=== PATIENT | female | born 1965 | race Caucasian/White ===

== ENCOUNTER → 2021-03-17 14:26 | Outpatient (CLI) | payer OTHER, MEDICAID, SELFPAY ==
--- NOTE | 2021-03-17 | DI.MRI.S_ITS ---
PROCEDURE: MR KNEE RT WO CON INDICATIONS: Unilateral primary osteoarthritis, right knee TECHNIQUE: Noncontrast sagittal PD fast spin echo and T2 fast spin echo with fat saturation, sagittal 3-D FLASH with fat saturation; coronal T1 spin echo and PD fast spin echo with fat saturation, and axial PD fast spin echo with fat saturation through the knee. COMPARISON: [facility] Outside Film, CR, XR KNEE 4+ VIEWS BILATERAL, 01/19/2021, 9:20. FINDINGS: Image quality: Degraded by motion artifact.. Menisci: Medial extrusion of the medial meniscus. Linear horizontally oriented high signal intensity traverses the medial meniscal body and posterior horn, demonstrating inferior articular surface extension. Linear horizontally oriented high signal intensity traverses the anterior horn lateral meniscus, demonstrating superior articular surface extension. Lateral extrusion of the lateral meniscus. Cruciate ligaments: The anterior and posterior cruciate ligaments appear intact. Medial structures: The medial collateral ligament appears intact. Visualized portions of the pes anserinus tendons appear normal. No abnormal bursal fluid. Lateral structures: The lateral collateral ligament demonstrates mild T2 signal elevation at the femoral origin. The long and short heads of the biceps femoris tendon appear intact. The popliteus tendon appears normal. Iliotibial band appears normal. Anterior structures: The quadriceps and patellar tendons appear intact. Patellar alignment is normal. No femoral trochlear dysplasia or ventral trochlear prominence. No edema in the infrapatellar fat pad. Bones and cartilage: No bone marrow contusions or fractures. Mild tricompartmental periarticular osteophyte formation. Mild degenerative marrow edema within the anterior and posterior weight-bearing aspects of the medial femoral condyle and medial tibial plateau. 5 mm diameter high-grade articular cartilage defect overlies the patellar apex inferiorly. Severe articular cartilage loss diffusely overlies the weight-bearing aspects of the medial femoral condyle and medial tibial plateau. Mild articular cartilage loss diffusely overlies the weight-bearing aspects of the lateral femoral condyle and lateral tibial plateau. Joint space: There is a small knee joint effusion and a small Ruvalcaba's cyst. Normal appearing synovial plicae are incidentally noted. IMPRESSION: 1. Tricompartmental osteoarthritis with associated articular cartilage loss. 2. Medial and lateral meniscal tearing. 3. Knee joint effusion and Ruvalcaba's cyst. 4. Low-grade partial-thickness lateral collateral ligament tear. Dictated by: Anne Issa M.D. on 03/17/2021 at 16:10 Approved by: Anne Issa M.D. on 03/17/2021 at 16:12
== END ==
PROVIDERS: Referring Provider Orthopaedic Surgery; Visit Provider Orthopaedic Surgery
DX: M17.11 Unilateral primary osteoarthritis, right knee (principal); S83.241A Other tear of medial meniscus, current injury, right knee, initial encounter; S83.281A Other tear of lateral meniscus, current injury, right knee, initial encounter; M25.461 Effusion, right knee; M71.21 Synovial cyst of popliteal space [Baker], right knee; S83.421A Sprain of lateral collateral ligament of right knee, initial encounter
CPT/HCPCS: 73721

== ENCOUNTER → 2021-03-22 15:15 | Outpatient (CLI) | payer OTHER, MEDICAID, SELFPAY ==
[2021-03-22 15:26] LABS: Bacteria Urine None Seen; RBC Urine None Seen (0-5/HPF)
[2021-03-22 15:45] LABS: Add Manual Diff / Slide Review NO; Basophils Absolute Auto 0 /uL (0-100); Basophils Percent Auto 0.5 % (0-2); Eosinophils Absolute Auto 100 /uL (0-450); Eosinophils Percent Auto 2.2 % (2-4); Hematocrit 37.7 % (36-46); Hemoglobin 12.6 g/dL (12.0-16.0); Lymphocytes Absolute Auto 2100 /uL (1100-4500); Lymphocytes Percent Auto 33.7 % (25-40); Mean Corpuscular HGB Conc 33.3 % (30-36); Mean Corpuscular Hemoglobin 29.2 PG (26-34); Mean Corpuscular Volume 87.7 fL (80-100); Monocytes Absolute Auto 800 /uL (0-900); Neutrophils Absolute Auto 3200 /uL (1500-7000); Neutrophils Percent Auto 50.6 % (50-75); Platelet Count 259 X10^3/uL (150-400); Red Cell Distribution Width 13.9 % (11.6-14.8); White Blood Cell Count 6.3 X10^3/uL (4.5-11.0)
[2021-03-22 16:57] LABS: BUN Creatinine Ratio 22.9 (6-22); Blood Urea Nitrogen 19 mg/dL (7-17); Calcium 9.1 mg/dL (8.4-10.2); Carbon Dioxide 27 mmol/L (22-32); Chloride 101 mmol/L (98-107); Estimated Glomerular Filt Rate > 60.0 mL/min (>60); Glucose 94 mg/dL (70-100); HEMOLYSIS < 15 (0-50); Potassium 3.5 mmol/L (3.4-5.1); Sodium 136 mmol/L (137-145)
[2021-03-22 17:13] LABS: Appearance Urine UA CLEAR; Bilirubin Urine UA NEGATIVE (NEGATIVE); Color Urine UA YELLOW; Glucose Urine UA NEGATIVE (Negative); Ketones Urine UA NEGATIVE (NEGATIVE); Leukocyte Esterase Urine UA NEGATIVE (NEGATIVE); Nitrite Urine UA NEGATIVE (Negative); Occult Blood Urine UA NEGATIVE (Negative); Protein Urine UA NEGATIVE (Negative); Specific Gravity Urine UA 1.015 (1.000-1.035); Urobilinogen Urine UA 0.2 E.U./dL (0.2)
[2021-03-22 17:24] LABS: WBC Urine 0-1/HPF (0-5/HPF)
[2021-03-22 17:25] LABS: Calcium Oxalate Crystals Urine Few; Culture Indicated Urine Cult Not Indicated; Squamous Epithelial Cell Urine 0-1 /HPF (0-5/HPF)
== END ==
PROVIDERS: Referring Provider Orthopaedic Surgery; Visit Provider Orthopaedic Surgery
DX: Z01.818 Encounter for other preprocedural examination (principal); Z01.812 Encounter for preprocedural laboratory examination; R73.9 Hyperglycemia, unspecified; N39.0 Urinary tract infection, site not specified
CPT/HCPCS: 36415; 80048; 81001; 83036; 85025; 93005; 93010

== ENCOUNTER → 2021-05-06 11:47 | Outpatient (CLI) | payer OTHER, MEDICAID, SELFPAY ==
[2021-05-06 12:49] LABS: COVID19 -Nasal RAPID Negative (Negative)
== END ==
PROVIDERS: Visit Provider Physician Assistant
DX: Z01.812 Encounter for preprocedural laboratory examination (principal); Z20.828 Contact with and (suspected) exposure to other viral communicable diseases
CPT/HCPCS: 87635

== ENCOUNTER 2021-05-09 08:45 | Day surgery (SDC) | payer OTHER, MEDICAID, SELFPAY ==
[2021-05-02 13:59] VITALS: BMI 27.1
[2021-05-09] VITALS (12 sets, daily range): BP systolic 98–142; BP diastolic 68–97; PULSE 80–98; RESP 14–20; TEMP 36.4–37.2; O2SAT 92–98; BMI 27.1
[2021-05-09] MEDS: ACETAMINOPHEN 325 MG TABLET 975 MG PO (09:05)
[2021-05-09] MEDS: MELOXICAM 7.5 MG TABLET 15 MG PO (09:05)
[2021-05-09] MEDS: VANCOMYCIN 1,000 MG/200 ML PIGGYBACK 200 MG IV (09:12)
[2021-05-09] MEDS: LACTATED RINGERS 1,000 ML 42 ML IV (09:33)
--- NOTE | 2021-05-09 10:07 | PM.PREOP ---
Pre-operative Note COVID-19 COVID-19 status: Negative Interval Note History & Physical reviewed/Exam performed by Physician: Yes Changes to H&P: No
--- NOTE | 2021-05-09 10:08 | P.OP_ITS ---
Operative Date/Time/Diagnoses Date of procedure: 05/09/21 Time of procedure: 10:56 Pre-op diagnosis: Right knee OA Post-op diagnosis: same Procedure & Clinicians Procedure: Right total knee arthroplasty Same procedure as scheduled: Yes Indications: The patient has had progressively worsening right knee pain with radiographic changes consistent with arthritis. Non-operative management has failed and the patient has requested total knee replacement. The risks, benefits and alternatives to surgery were discussed with the patient prior to proceeding. Risks discussed included, but were not limited to, failure to relieve pain, stiffness, infection, nerve damage, deep venous thrombosis, pulmonary embolism, stroke, coma, heart attack, permanent paralysis and , as well as the potential need for eventual revision of the prosthetic. Surgeon: Rachel Virgen Glass Blowing Lathe Operator: Israel Naranjo Anesthesia Type: General and Spinal Operative Notes Findings: Severe right knee osteoarthritis, good stability Closure Type: primary Specimen(s): none sent Prosthetic devices, grafts, tissues, transplants, or devices: Virgen [employer] Nephew Lupe BCS 2 size 4 femur, size 3 tibia, +9 poly, 32 x 7.5 mm patella Applied: drain(s) Estimated Blood Loss (mL): 250 Tourniquet time (min): 62 Procedure in detail: The patient was seen in the pre-operative area, where the patient identified the right knee as the operative site and this was marked with my initials. The patient received pre-operative antibiotics, and was taken to the operating room and placed on the operative table in the supine position. After satisfactory anesthesia, a production cloth cutter out was performed. The right leg was encircled with a tourniquet about the proximal thigh, and the leg was prepared from the toes to the tourniquet with ChloroPrep in the usual fashion and draped through sterile drapes. The leg was elevated and exsanguinated with Eschmark bandage and the tourniquet inflated to [250] mmHg pressure. The knee was approached through an approximately 18 cm incision centered over the patella and carried into the knee through a medial parapatellar arthrotomy. A portion of the medial and lateral meniscus was resected. Soft tissue was carefully mobilized around the patella the patella was measured with a caliper. Bone was resected from the patella and the patellar height was reconstituted with up an appropriate sized patellar component. A cover was then placed on the patella. A small amount of additional medial and lateral meniscus was resected. The visionare guide fit well to the distal femur. It looked like an appropriate distal femoral cut and the cut was made without difficulty. The rotation was assessed and the appropriate size femoral guide was placed on the distal femur and finishing cuts were made. There was no evidence of notching. The anterior, posterior and chamfer cuts were then made. The posterior osteophytes and soft tissues were then removed. The posterior capsule was injected with part of a mixture of 60 ml 0.25% Marcaine mixed with 20 ml Exparel for post operative pain control. The remainder of this mixture was injected into the capsule and subcutaneous tissues during cement curing. The tibia was prepared and the visionaire guide fit well to the distal tibia. The rotation was assessed. The patient was placed in extension residual medial and lateral meniscus as well as any residual bone was carefully resected. [No] additional tibia was resected. Hemostasis was achieved especially posteriorly. Additional local was injected into the posterior capsule. The extension gap was assessed and additional releases for gap balancing were performed as necessary. It was checked with the gap it operations specialist. The femoral component was trial was placed and the notch was finished. Trial tibial and femoral components were then placed and the knee placed through a range of motion. Range of motion was [0-130], with good stability throughout the range. The trials were then removed, and the tibia was finished. The bone was prepared with pulsatile lavage, and dried with a sponge. Cement was applied and the final prosthetics placed. Excess cement was removed during and after cement curing. A brief Betadine soak was performed. After confirming there was no extruded cement posteriorly, the final tibial insert was placed. The knee was copiously irrigated and the tourniquet deflated. Hemostasis was obtained with the bovie. A drain was placed and brought out superolaterally. The capsule was closed with interrupted # 1 black braided suture. The subcutaneous layer was closed with barbed sutures, and the skin with a running 3-0 V-Lock suture and Surgical glue. An Aquacel Ag dressing was applied and the patient was taken to recovery having tolerated the procedure well. Complications: none Post-operative Condition: stable Disposition: Acute Care Plan for aftercare: The patient will be maintained on a standard total knee replacement protocol with weight bearing as tolerated. The patient will receive aspirin and sequential compression devices for DVT prophylaxis. The patient will be discharged home when safe for the home environment.
[2021-05-09] MEDS: CEFAZOLIN 1 GM VIAL 2 GM IV ×2 (10:42→19:26)
[2021-05-09] MEDS: TRANEXAMIC ACID 1,000 MG VIAL 1000 MG INJ ×2 (10:43→11:59)
--- NOTE | 2021-05-09 11:01 | SUR.OPER ---
Supine on padded OR bed. Pillow under head, arms secured on padded armboards <90 degree abduction. Safety belt across torso. Non-operative leg secured with tape over blanket over lower leg. Operative leg secured in DeMayo/Tony positioner. Foam padded brace at thigh of operative leg.
[2021-05-09] MEDS: SODIUM CHLORIDE IRRIG SOLUTION 250 ML, POVIDONE-IODINE SPONGE STICKS 1 APPLIC IRR (11:20)
[2021-05-09] MEDS: BUPIVACAINE LIPOSOME 266 MG/20 ML VIAL INJ (11:20)
[2021-05-09] MEDS: BUPIVACAINE 0.25% W/ EPI (PF) 10 ML VIAL 20 ML INJ (11:22)
--- NOTE | 2021-05-09 12:00 | DI.RAD.S_ITS ---
PROCEDURE: XR KNEE RT 1TO2V INDICATIONS: RT TOTAL KNEE TECHNIQUE: 2 view(s) of the knee acquired. COMPARISON: None. FINDINGS: Bones: Patient is status post knee joint arthroplasty. Hardware components are in expected positions. Visualized bony structures are intact. Soft tissues: Overlying postoperative changes are noted. IMPRESSION: Normal alignment after right total knee arthroplasty. Dictated by: Gurvinder Hull M.D. on 05/09/2021 at 13:40 Approved by: Gurvinder Hull M.D. on 05/09/2021 at 13:41
[2021-05-09] MEDS: IBUPROFEN 400 MG TABLET PO ×3 (13:41→21:24)
[2021-05-09] MEDS: LACTATED RINGERS 1,000 ML 100 ML IV (13:41)
[2021-05-09] MEDS: OXYCODONE IR 5 MG TABLET PO (13:41)
--- NOTE | 2021-05-09 14:34 | PC.ADMIT ---
[address] Admission Note: Patient arrived on the floor at 1315, VSS, Dressing is CDI, aquacel w/acewrap and hemovac. Patient has numbness bilaterally in both feet, pedal pulses and cap refill WNL. Patient has some pain 7/10. 5mg of Oxycodone given. Patient educated about the use of call light, it is within reach, bed is low and locked. The patient,Nay Linares,56 y/o, was given written information regarding hospital policies, unit procedures and contact persons. Patient's smoking status: Never smoker. Vital Signs - 8 hr 05/09/21 09:08 05/09/21 12:29 05/09/21 12:34 Temperature 98.2 F 98.6 F Pulse Rate 86 90 82 Respiratory Rate 20 14 16 Blood Pressure 136/86 142/77 H 132/76 Pulse Oximetry 97 96 95 05/09/21 12:39 05/09/21 12:54 05/09/21 14:04 Temperature 98.4 F Pulse Rate 80 80 80 Respiratory Rate 14 16 16 Blood Pressure 118/73 132/73 Pulse Oximetry 95 98 94
--- NOTE | 2021-05-09 15:38 | PT.IIE ---
Current Diagnoses Unilateral primary osteoarthritis, right knee (05/09/21) Surgery Performed Operation Date: 05/09/21 10:45 Actual Procedures p Total Knee Arthroplasty(Right) - Rachel Virgen MD Surgical History (Last Updated 05/02/21 @ 14:12 by Sarah Bonner, RN) History of arthroplasty of left hip (2019) History of arthroscopy of left shoulder Hx of arthroscopy of right knee Hx of lithotripsy Medical History (Last Updated 05/02/21 @ 14:13 by Sarah Bonner RN) Back pain Depression Kidney stones Osteoarthritis Physical Therapy Inpatient Evaluation/Re-Eval M1 PT/OT-IP Prior Functional Status Start: 05/09/21 16:44 Freq: NEEDED Status: Active Protocol: Document 05/09/21 15:38 AB (Rec: 05/09/21 16:54 AB [id number]) Medical Review Prior Functional Status Medical History Reviewed Yes Communication able to make needs known Mobility and Gait pt stated that she is independent with all mobilities and ambulation without AD Social History Household Members none Living Arrangements House Number of Floors (Floors) One Floor Number of Stairs To Enter/Railing? 3 steps L rail ascending to enter Home Environment High Toilet,Walk in Shower, Built-In Shower Seat Home Equipment Hand Held Shower Additional Social History Comment pt plans to stay at her parents house and they can assist pt; home set up info is regarding parent's house M2 PT-IP Current Condition Start: 05/09/21 16:44 Freq: NEEDED Status: Active Protocol: Document 05/09/21 15:38 AB (Rec: 05/09/21 16:54 AB [id number]) Physical Therapy Current Condition Current Condition Evaluation Date 05/09/21 Treatment Diagnosis s/p R TKA; difficulty in walking Onset Date 05/09/21 Weight Bearing Status Weight Bearing Status Weight Bear as Tolerated Allowed Weight Bearing Amount (enter % RLE WBAT or #) (%) M3 PT-IP Subjective Start: 05/09/21 16:44 Freq: NEEDED Status: Active Protocol: Document 05/09/21 15:38 AB (Rec: 05/09/21 16:54 AB [id number]) Subjective Physical Therapy Visit Type Type Initial Evaluation Visit Start Time 15:38 Visit Stop Time 16:05 Total Visit Minutes 27 Number of MODERN LANGUAGES PROFESSOR Visits 0 Physical Therapy Visit Comments Patient Comments agreeable to do PT Therapy Pain Assessment Pain When Pain Assessed At Rest Pain Present Pain Present Pain Reported Location Right Knee Intensity 7 Scale Used Numeric (0 - 10) Pain Behaviors Guarding Pain Management Techniques Apply Cold,Elevation, Modification of Treatment,Re- positioning,Timing of Activity with Medications M4 PT-IP Mobility and Gait Start: 05/09/21 16:44 Freq: NEEDED Status: Active Protocol: Document 05/09/21 15:38 AB (Rec: 05/09/21 16:54 AB [id number]) PT-Bed Mobility Assessment Supine to Sit Supine to Sit Standby Assistance Sit to Supine Sit to Supine Standby Assistance PT-Transfer Assessment Sit to and From Stand Sit to and from Stand Contact Guard Assistance,1 Person Assistance,Use of Upper Extremities Equipment Transfer Assistive Device Bed Rail,Front Wheeled Walker Orthotic/Prosthetic Devices or Brace: No Comments Mobility Comments completed supine to sit SBA. pt was able to sit on EOB SBA. completed sit to stand CGA and ambulated in room using FWW CGA ~ 30 ft. pt went back to bed. positioned in bed. call light and table placed within reach. reviewed post-op folder with pt. Gait Assessment Gait Gait Assistance Required: Contact Guard Assist Distance (Feet) 30 Able to Maintain Weight Bearing Status No During Gait Assistive Devices Assistive Device Gait Belt,Front Wheeled Walker Orthotic/Prosthetic Devices or Brace: No Gait Deviations General Gait Pattern Antalgic,Decreased Stride Length,Decreased Feet Clearance Factors Limiting Gait Function Factors Limiting Gait Function Decreased Activity Tolerance, Decreased Strength,Pain,Poor Balance PT-Balance Assessment Sitting Balance and Reactions Static Sitting Balance Ability Good Dynamic Sitting Balance Ability Good Standing Balance and Reactions Static Standing Balance Ability Fair Dynamic Standing Balance Ability Fair Device Used FWW M5 PT-IP Objective Assessments Start: 05/09/21 16:44 Freq: NEEDED Status: Active Protocol: Document 05/09/21 15:38 AB (Rec: 05/09/21 16:54 AB [id number]) Orientation Orientation/Cognition Level of Alertness Alert Orientation Name,Age,Birthday,Month,Date, Year,Day of Week,Place, Situation Language Function Ability No Deficits Noted Safety Awareness Understands Safety Issues Gross Range of Motion Lower Extremity ROM Assessment Within Functional Limits Strength Lower Extremity Strength Assessment Right Impaired Hip 4+/5 Knee 3+/5 Coordination Assessment Gross Coordination Gross Coordination WNL Sensation Assessment Sensation Gross Sensation WNL Muscle Tone Muscle Tone WNL Yes M6 PT-IP Treatment Start: 05/09/21 16:44 Freq: NEEDED Status: Active Protocol: Document 05/09/21 15:38 AB (Rec: 05/09/21 16:54 AB [id number]) Physical Therapy Treatment Education Education Provided Precautions,Weight Bearing Status,Post-Op Packet,Safety M7 PT-IP Assessment and Plan Start: 05/09/21 16:44 Freq: NEEDED Status: Active Protocol: Document 05/09/21 15:38 AB (Rec: 05/09/21 16:54 AB [id number]) PT Summary Assessment and Plan Potential Rehabilitation Potential Good Status of Condition at Evaluation Stable Summary Impairments Pain,ROM,Strength,Balance,Bed Mobility,Transfers,Gait, Activity Tolerance Assessment Summary pt s/p R TKA POD 0. pt requiring CGA with mobility using FWW and plans to go to her parent's house upon d/c and stated that her parents will be able to assist her. pt will likely progress in mobility during hospital stay. will conduct caregiver training if appropriate and will also complete stair climbing training prior to d/c . Goals Bed Mobility Goal Independent Transfer Goal Independent,Front Wheeled Walker Gait Goal Independent,Front Wheel Walker Gait Distance 150 Other Goals up/down 3 steps L rail ascending SBA Days to Meet Goals 5 Frequency of Treatment Frequency Of Treatment Twice a Day Treatment Plan Physical Therapy Treatment Plan Bed Mobility Training,Transfer Training,Gait Training, Therapeutic Exercise,Balance Retraining,Post Op Education, Discharge Planning,Hot or Cold Pack,Neuromuscular Re-ed, Coordination Retraining,Manual Therapy Precautions Other Precautions RLE WBAT Recommendations To Nursing Amount of Assist Needed 1 Person Assist Discharge Recommendations PT Discharge Recommendations Home with Assistance, Outpatient PT Transportation Needs at Discharge Private Vehicle
[2021-05-09] MEDS: ACETAMINOPHEN 325 MG TABLET 650 MG PO ×2 (15:39→21:24)
[2021-05-09] MEDS: OXYCODONE IR 5 MG TABLET 10 MG PO ×3 (16:51→23:32)
[2021-05-09] MEDS: DOCUSATE 100 MG CAPSULE PO (21:24)
[2021-05-09] MEDS: ASPIRIN EC 81 MG TABLET PO (21:24)
[2021-05-09] MEDS: TRAZODONE 100 MG TABLET 200 MG PO (21:26)
[2021-05-10] VITALS: BP 111/65; PULSE 71; RESP 18; TEMP 36.7; O2SAT 95
[2021-05-10] MEDS: IBUPROFEN 400 MG TABLET PO ×4 (00:45→13:32)
[2021-05-10] MEDS: LACTATED RINGERS 1,000 ML 100 ML IV (01:07)
[2021-05-10] MEDS: CEFAZOLIN 1 GM VIAL 2 GM IV (02:45)
[2021-05-10] MEDS: OXYCODONE IR 5 MG TABLET 10 MG PO ×5 (02:52→14:37)
[2021-05-10 03:06] VITALS: BP 136/66; PULSE 83; RESP 14; TEMP 36.9; O2SAT 95
[2021-05-10] MEDS: SODIUM CHLORIDE 0.9% FLUSH 10 ML IV ×2 (04:57→08:23)
--- NOTE | 2021-05-10 05:25 | PC.NURSE ---
Ambulated w/ FWW and GEAR MACHINIST completely through the acute care and ICU floors without any problem.
[2021-05-10 05:29] LABS: Hematocrit 31.9 % (36-46); Hemoglobin 10.6 g/dL (12.0-16.0)
--- NOTE | 2021-05-10 05:34 | PC.NURSE ---
Saline locked IV, pt. ambulating in the hallway, SBA & her own walker. Pain level up to 8 after she ambulated, will medicate her with 10 mg. of Oxycodone & monitor.
[2021-05-10 07:00] VITALS: BP 129/76; PULSE 65; RESP 17; TEMP 36.3; O2SAT 96
[2021-05-10] MEDS: buPROPion XL 150 MG TAB 300 MG PO (08:18)
[2021-05-10] MEDS: ASPIRIN EC 81 MG TABLET PO (08:18)
[2021-05-10] MEDS: DOCUSATE 100 MG CAPSULE PO (08:18)
[2021-05-10] MEDS: DULOXETINE 30 MG CAPSULE 60 MG PO (08:18)
[2021-05-10] MEDS: ACETAMINOPHEN 325 MG TABLET 650 MG PO ×2 (08:19→13:32)
[2021-05-10 08:36] VITALS: RESP 16; O2SAT 95
--- NOTE | 2021-05-10 09:35 | PT.IPTN ---
Current Diagnoses Unilateral primary osteoarthritis, right knee (05/09/21) Surgery Performed Operation Date: 05/09/21 10:45 Actual Procedures p Total Knee Arthroplasty(Right) - Rachel Virgen MD Physical Therapy Treatment Note M2 PT-IP Current Condition Start: 05/09/21 16:44 Freq: NEEDED Status: Active Protocol: Document 05/09/21 15:38 AB (Rec: 05/09/21 16:54 AB [id number]) Physical Therapy Current Condition Current Condition Evaluation Date 05/09/21 Treatment Diagnosis s/p R TKA; difficulty in walking Onset Date 05/09/21 Weight Bearing Status Weight Bearing Status Weight Bear as Tolerated Allowed Weight Bearing Amount (enter % RLE WBAT or #) (%) M3 PT-IP Subjective Start: 05/09/21 16:44 Freq: NEEDED Status: Active Protocol: Document 05/10/21 09:18 SP (Rec: 05/10/21 12:12 SP [id number]) Subjective Physical Therapy Visit Type Type Treatment Note Visit Start Time 09:18 Visit Stop Time 09:35 Total Visit Minutes 17 Number of MANAGER OF PHARMACY Visits 1 Physical Therapy Visit Comments Patient Comments Pt agreeable to working with therapy. Patient Goals To return to her mother's house, she will provide assist if needed while recovering. Therapy Pain Assessment Pain When Pain Assessed During Mobility Pain Present Pain Present Pain Reported Location Right Knee Intensity 4 Scale Used Numeric (0 - 10) Description With Movement Pain Behaviors Facial Grimacing Pain Management Techniques Apply Cold,Elevation,Re- positioning,Timing of Activity with Medications M4 PT-IP Mobility and Gait Start: 05/09/21 16:44 Freq: NEEDED Status: Active Protocol: Document 05/10/21 09:18 SP (Rec: 05/10/21 12:12 SP [id number]) PT-Bed Mobility Assessment Supine to Sit Supine to Sit Independent Scooting Scooting to Edge of Bed Independent PT-Transfer Assessment Sit to and From Stand Sit to and from Stand Independent,Use of Upper Extremities Equipment Transfer Assistive Device Gait Belt,Front Wheeled Walker Orthotic/Prosthetic Devices or Brace: No Transfers Transfer Destination Chair,Toilet Transfer Technique pt ambulated using FWW Transfer Ability Level of Assist Independent,Use of Upper Extremities Comments Mobility Comments Pt elevated supine in bed when arrived. Reviewed post op ex. Completed supine>sit and scoot to EOB Mod I with no support of UEs for RLE. Sit> stand Mod I x2 reps with and without UE support RLE positioned little out in front and fWW positioned in front, stable. Pt ambulated further into hallway using FWW Mod I to stairs, completed stairs then around nursing station and back to room approx 700ft total. She navigated bathroom using FWW Mod I, completed transfer using grab bar for support slow descent <> stand Mod I and self pericare then walk to sink with proper positioning of fWW in front for safety support as needed, good balance and even WB BLE to wash hands then walk to chair with good slow descent and reclined chair self after discussed lever on R for how to recline. Pt had call light and all needs in reach before left. Gait Assessment Gait Gait Assistance Required: Independent Distance (Feet) 700 Able to Maintain Weight Bearing Status No During Gait Assistive Devices Assistive Device Gait Belt,Front Wheeled Walker Orthotic/Prosthetic Devices or Brace: No Gait Deviations General Gait Pattern Antalgic Factors Limiting Gait Function Factors Limiting Gait Function Limited Range of Motion,Pain Comments Gait Comments Pt ambulated using FWW improved knee flexion and heel toe phases receiprocal patterning w/ very minimal pressure of BUE on FWW for support during WB LLE and RLE swing through phase. Stair Climbing Assessment Evaluation Level of Assist On Stairs Standby Assistance Devices Stair Climbing Assistive Devices Left Railing Technique/Endurance Stair Climbing Direction Ascend and Descend Stair Climbing Technique Step to Step Number of Steps Climbed 3 Stair Climbing Set # Repetitions (reps) 1 Comments Stair Climbing Comments Ascend/ descend 3 stairs step to patterning using BUE on L HR, cued for proper sequencing and good follow through SBA. PT-Balance Assessment Sitting Balance and Reactions Static Sitting Balance Ability Normal Dynamic Sitting Balance Ability Normal Standing Balance and Reactions Static Standing Balance Ability Good Dynamic Standing Balance Ability Good Device Used FWW M5 PT-IP Objective Assessments Start: 05/09/21 16:44 Freq: NEEDED Status: Active Protocol: Document 05/09/21 15:38 AB (Rec: 05/09/21 16:54 AB [id number]) Orientation Orientation/Cognition Level of Alertness Alert Orientation Name,Age,Birthday,Month,Date, Year,Day of Week,Place, Situation Language Function Ability No Deficits Noted Safety Awareness Understands Safety Issues Gross Range of Motion Lower Extremity ROM Assessment Within Functional Limits Strength Lower Extremity Strength Assessment Right Impaired Hip 4+/5 Knee 3+/5 Coordination Assessment Gross Coordination Gross Coordination WNL Sensation Assessment Sensation Gross Sensation WNL Muscle Tone Muscle Tone WNL Yes M6 PT-IP Treatment Start: 05/09/21 16:44 Freq: NEEDED Status: Active Protocol: Document 05/10/21 09:18 SP (Rec: 05/10/21 12:12 SP [id number]) Physical Therapy Treatment Exercises Exercises Ankle Pumps,Heel Slides, Straight Leg Raises,Seated Knee Flexion/Extension Knee ROM Measurement 90 deg Education Education Provided Precautions,Weight Bearing Status,Post-Op Packet,Safety M7 PT-IP Assessment and Plan Start: 05/09/21 16:44 Freq: NEEDED Status: Active Protocol: Document 05/10/21 09:18 SP (Rec: 05/10/21 12:12 SP [id number]) PT Summary Assessment and Plan Potential Rehabilitation Potential Excellent Status of Condition at Evaluation Stable Summary Impairments Pain,ROM,Strength,Balance,Bed Mobility,Transfers,Gait, Activity Tolerance Progress Towards Goals Progressing Toward Goals,Goals Met Assessment Summary Pt progressing very well this tx. Completes all mobility Mod I using FWW, stair mgt SBA 1 HR, no caregiver training required. Pt is set up with outpt therapy and able to return home with her mother to assist if needed when medically cleared. Goals Bed Mobility Goal Independent Transfer Goal Independent,Front Wheeled Walker Gait Goal Independent,Front Wheel Walker Gait Distance 150 Other Goals up/down 3 steps L rail ascending SBA Days to Meet Goals 5 Frequency of Treatment Frequency Of Treatment Twice a Day Treatment Plan Physical Therapy Treatment Plan Bed Mobility Training,Transfer Training,Gait Training, Therapeutic Exercise,Balance Retraining,Post Op Education, Discharge Planning,Hot or Cold Pack,Neuromuscular Re-ed, Coordination Retraining,Manual Therapy Other Recommendations and Next Treatment LE ex, balance, gait with LRAD Focus . Precautions Other Precautions RLE WBAT Recommendations To Nursing Amount of Assist Needed Independent Discharge Recommendations PT Discharge Recommendations Home with Assistance, Outpatient PT Transportation Needs at Discharge Private Vehicle
[2021-05-10 11:00] VITALS: BP 121/75; PULSE 70; RESP 18; TEMP 36.9; O2SAT 96
--- NOTE | 2021-05-10 11:10 | CM.DANOTE ---
Addendum entered by ANA Turcios 05/10/21 15:04: ADD: Per Ortho PA, pt safe for d/c home via mother POV today and outpt follow up and no identified barriers to discharge. Per RN, pt's mother bedside and agreeable and able to transport pt home today, no concerns. BF Original Note: Patient is a 56 year old female who was admitted on 05/09/21 for RTKA. Pt has [facility] and [facility] for insurance and her PCP is Dr. Ene Burgos. EMR was reviewed. Per Ortho , pt has hx of depression and past hip replacement and tolerated her procedure well and may be stable to d/c home later today pending PT eval and recommendations. Per PT, pt is independent with ADL's and does not use DME to ambulate at baseline and recommending safe d/c home with family assist and outpt PT. SW observed pt walking hallways with walker independently with PT this morning. SW met bedside with pt and explained role and pt confirms that she lives at home alone in [place] but has local supportive parents who can provide transport home at d/c and she will stay with them for at least a few days for additional assist. Pt denies any hx of HH or SNF and has outpt PT appt set up already for after discharge. Pt does not anticipate any needs and states her mom plans to be bedside around noon and can transport today if pt stable for d/c. Plan: SW to follow for likely pt d/c home via family POV and assist today and outpt PT set up. No further SW needs at this time, please refer if indicated. ANA Turcios Discharge Planning/Care Management Advanced directive, confirm from FAMILY Start: 05/09/21 13:31 Freq: Q24H Status: Complete Protocol: Document 05/09/21 13:31 KLP (Rec: 05/09/21 13:35 KLP [id number]) Advance Directive, confirm on record Time 13:35 Person contacted Nay Copy received No Document 05/10/21 08:47 CEW (Rec: 05/10/21 08:48 CEW [id number]) Advance Directive, confirm on record Time 13:35 Person contacted Nay Copy received No Time 08:48 Person contacted Nay, she will bring form in when completed. Is a FC at this time per pt CM Discharge Assessment Start: 05/10/21 10:41 Freq: Status: Active Protocol: Document 05/10/21 10:41 BF (Rec: 05/10/21 11:10 BF [id number]) Discharge Planning Assessment Assigned Cook Jelly ANA Hess DPOA/Assigned Designee Name informally Mother Winsome Contact Information [phone] Advance Directives? No Advance Directives on File No History Provided By Patient,Medical Record Has Patient been admitted in last 30 No days? Prior Living Arrangements House Household Members none Type of transporation used prior to Drives own vehicle admit Independent with ADL's Yes Is patient alert and oriented? Yes Caregiver for Another No Community Services used prior to Physical Therapy admission: Patient/Family Preference OP PT Therapy Barriers to Discharge No Discharge Plan Home Community Services Physical Therapy Transportation Arrangement Mother to transport today in the afternoon Referrals Initiated None needed Whiteboard Updated in Patient Room with Yes name and ext. # of Cook Jelly Review Status In Process Please Provide Date Initial DC 05/10/21 Assessment Was Performed Next Review Type Continued Stay Review Pre-Anesthesia Assessment Start: 05/02/21 13:59 Freq: Status: Complete Protocol: Document 05/02/21 13:59 CAB (Rec: 05/02/21 14:25 CAB [id number]) Pre-Anesthesia Assessment Patient Information Reviewed Via Phone Assessment Assessment Completed With Patient Diagnostic Results BMP/CMP,CBC,EKG Comment Labs/EKG @ 03/22/21 COVID screen at 05/08/21 Primary Care Provider Jody Seen Specialist in Last 12 Months Yes Specialist Seen Orthopedist Primary Language Finnish Polymer Specialist Required No Height 162.56 cm Weight 71.668 kg Body Mass Index (BMI) 27.1 Hearing Ability Normal Visual Impairment No Limitations Visual Assist Magnifying Glass Dentition Type Teeth, Natural Present,Teeth, Missing Barriers to Learning None Hx Anesthesia Reactions No Hx Family Anesthesia Reaction No Hx Malignant Hyperthermia No Hx Blood Transfusions No Anesthesia Review Requested No alcohol intake former Alcohol Intake Frequency Other: Quit 3-4 years ago Smoking Status Never smoker Substance Use Type does not use Pain Present Pain Reported Musculoskeletal Symptoms Abnormal Gait,Back Pain, Difficulty Walking,Joint Pain History of Falling (Recent or History of Yes ) Patient is completely paralyzed or No completely immobile Mental Status Oriented to own ability Is patient on oxygen? No Does patient have PENALOZA/SOB No Hx Sleep Apnea No Currently Taking a Beta Aaron No Can You Climb a Flight of Stairs Without Yes SOB Hx Chest Pain No Hx SOB No Hx Syncope or Dizziness No Anti-Coagulant Therapy No Has a Nondestructive Tester No Cardiac Testing No Hx Pacemaker/ICD No Pacemaker Rep Required? No Cardiac Clearance Received Not Applicable Diet Type At Home Low Carb dysphagia No Urinary Catheter Present No Hx Urinary Self Catheterization No Diabetes No Patient No Lactating No Hx Drug Resistant Organism No Presence of External or Internal Medical Yes: Left hip Devices Have you had any close contact with No someone diagnosed with COVID-19? Marital Status Single Lives With other Prior Living Arrangements House Number of Floors (Floors) One Floor Support System Parent(s) Does the Patient Have Assistance After Yes: Pt will stay w/parents Surgery after surgery Patient Discharge Plan Description Other Comment Pt will stay w/parents after surgery Additional comment Pt not advised on length of stay per surgeon Feels Safe in Current Environment Yes Been Physically Hurt or Threatened By a No Person in Current Environment Do you have thoughts of harming yourself None or others? Are you currently considering suicide? No Do you have a plan to hurt yourself or No Plan others? Do You Have Any Spiritual Beliefs That No May Affect Your HC Choices? Do You Have Any Cultural Practices That No May Affect Your HC Choices? Who Can We Speak to About Patient's Care Family, friends Identifying Code for Release of Patient Declines to issue Information Health Care Proxy/Next of Kin Winsome Valdez) Health Care Proxy Emergency Contact Name Winsome Valdez) Emergency Contact Advance Directives? No Power of [place] Machine Operator No PAC Instructions Do not shave/clip surgical site,Durable medical equipment ,Medications to take/avoid, Nasal antibiotic,No ETOH/ petroleum product on skin DOS, NPO,Sensory aids,Sturdy shoes/ comfortable clothes,Do not bring valuables and remove jewelry
--- NOTE | 2021-05-10 11:51 | PC.NURSE ---
Pt accidently pulled drain apart. Hemovac removed intact. IV removed intact. Pt is having some problems with pain control, medication is not lasting long enough and she is having muscle spasm, message sent to md/pac.
--- NOTE | 2021-05-10 13:35 | PT-IP ANOTE ---
Pt noted still here in afternoon waiting on DC orders. Pt reported having pain and nursing was providing pain meds at time of arrival. Pt felt didn't have any other PT needs, demonstrated Mod I during all mobility and SBA stair mgt that her mom can provide thus meeting all PT goals during am tx so not need PM tx. SOCIAL SERVICES COUNSELOR did not provide tx this pm and pt is ok to return home with medically cleared.
--- NOTE | 2021-05-10 14:58 | PC.NURSE ---
Discharge: Pt feels ready to d/c to home. Had some issues with pain, now taking oxycodone 10mg instead of 5 and this has been helping her with pain better. She feels she can d/c home with current pain med regime. Diet tolerated w/out problems. Hemovac and IV already out. Vds w/out diff. Reviewed d/c packet. Given rx for pain medication, other scripts were esent. Has worked with PT and given there d/c instructions. Pt's mom will be staying with her for help. Pt d/c home via auto w/her mother.
== END 2021-05-10 14:55 | disposition home or self-care (01) ==
LOC: OR 08:51 → AC 08:52
PROVIDERS: Family Provider Family Medicine; PCP Family Medicine; Referring Provider Orthopaedic Surgery; Visit Provider Orthopaedic Surgery
PROC: 0SRC0JZ Replacement of Right Knee Joint with Synthetic Substitute, Open Approach (ICD-10-PCS; CPT 27447; principal; 2021-05-09 10:45)
DX: M17.11 Unilateral primary osteoarthritis, right knee (principal); F32.9 Major depressive disorder, single episode, unspecified
CPT/HCPCS: 27447; 36415; 73560; 85014; 85018; 94760; 94762; 97116; 97161; C1776; C9290; J0690; J1100; J2250; J2274; J2405; J2704; J3010

== ENCOUNTER 2021-05-23 10:30 | Outpatient (RCR) | payer OTHER, MEDICAID, SELFPAY ==
[2021-05-09 13:23] VITALS: BMI 27.1
--- NOTE | 2021-05-10 15:19 | PM.DS.1 ---
History of Present Illness History of Present Illness Date Patient Seen: 05/10/21 Time Patient Seen: 14:01 Chief complaint: total knee Narrative: Patient's pain is [id number]. Denies fever or chills. No nausea or vomiting. Patient will have her mother home and available to assist her. Discharge Providers Provider Discharge Date: 05/10/21 Primary care physician: Ene Burgos MD Discharge provider: Israel Naranjo PA-C Summary Hospital Course Discharge Diagnosis: Right knee osteoarthritis Hospital Course: Procedure: Right total knee arthroplasty Same procedure as scheduled: Yes Indications: The patient has had progressively worsening right knee pain with radiographic changes consistent with arthritis. Non-operative management has failed and the patient has requested total knee replacement. The risks, benefits and alternatives to surgery were discussed with the patient prior to proceeding. Risks discussed included, but were not limited to, failure to relieve pain, stiffness, infection, nerve damage, deep venous thrombosis, pulmonary embolism, stroke, coma, heart attack, permanent paralysis and , as well as the potential need for eventual revision of the prosthetic. Surgeon: Rachel Virgen Registered Dietitian: Israel Naranjo Anesthesia Type: General and Spinal Operative Notes Findings: Severe right knee osteoarthritis, good stability Closure Type: primary Specimen(s): none sent Prosthetic devices, grafts, tissues, transplants, or devices: Virgen and Nephew Journey BCS 2 size 4 femur, size 3 tibia, +9 poly, 32 x 7.5 mm patella Applied: drain(s) Estimated Blood Loss (mL): 250 Tourniquet time (min): 62 Patient admitted to the hospital for right total knee arthroplasty. Patient consented to the same. Patient taken operating room on May 09, 2021. Patient underwent right total knee arthroplasty. Patient back in her room recovering well and is in stable condition. Discharge home today in stable condition. Exam Narrative Exam Narrative: Pleasant 56-year-old female resting comfortably in bed in no apparent distress. Right knee dressing is Clean, dry, intact.. Motor functions intact bilateral lower extremities. Sensation grossly intact to light touch bilateral lower extremities. [facility] Medical History (Updated 05/02/21 @ 14:13 by Sarah Bonner RN) Back pain Depression Kidney stones Osteoarthritis Surgical History (Updated 05/02/21 @ 14:12 by Sarah Bonner RN) History of arthroplasty of left hip (2019) History of arthroscopy of left shoulder Hx of arthroscopy of right knee Hx of lithotripsy Social History household members: none Smoking Status: Never smoker alcohol intake: former Discharge Assessment & Plan Assessment and Plan Assessment: Patient progressing as expected status post right total knee arthroplasty. Plan of Treatment: Discharge home today in stable condition. Discharge Plan Discharge Med Rec/Prescriptions Prescriptions: No Action trazodone 100 mg Tablet 200 mg PO BEDTIME RF: 0 bupropion HCl 300 mg Tablet Extended Release 24 Hr 300 mg PO QAM RF: 0 duloxetine 60 mg Capsule,Delayed Release(Dr/Ec) 60 mg PO DAILY RF: 0 acetaminophen 325 mg Tablet 650 mg PO TID Qty: 60 RF: 0 aspirin 81 mg Tablet,Delayed Release (Dr/Ec) 81 mg PO BID Qty: 60 RF: 0 ibuprofen 400 mg Tablet 400 mg PO Q4HR Qty: 60 RF: 0 docusate sodium [DOK] 100 mg Capsule 100 mg PO BID Qty: 20 RF: 0 oxycodone 5 mg Tablet 5 mg PO Q3HR PRN (Reason: Pain, Moderate (4-6)) Qty: 60 RF: 0 Discharge Data Primary Care Provider: Ene Burgos Attending Provider: Rachel Virgen
--- NOTE | 2021-05-16 12:54 | PT.OIE ---
Current Diagnoses Unilateral primary osteoarthritis, right knee (05/16/21) Past Medical History (Last Updated 05/02/21 @ 14:13 by Sarah Bonner RN) Back pain Depression Kidney stones Osteoarthritis Past Surgical History (Last Updated 05/02/21 @ 14:12 by Sarah Bonner RN) History of arthroplasty of left hip (2019) History of arthroscopy of left shoulder Hx of arthroscopy of right knee Hx of lithotripsy Visit Care Team Role Provider Type Other Providers Specialty: Address: Phone: Fax: Email: Ene Burgos MD Family Provider Non-Staff Primary Care Provider Specialty: Family Practice Address: [address] [place] [address], [id number] Email: Rachel Virgen MD Attending Provider Physician Referring Provider Specialty: Orthopedic Surgery Address: [address] [place] [address], [id number] Email: [email or web address] Physical Therapy Initial Evaluation PT-OP-A Visit Information Start: 05/07/21 08:21 Freq: Status: Active Protocol: Document 05/16/21 12:00 OF (Rec: 05/16/21 12:53 OF [id number]) Out-Patient Physical Therapy Visit Information Visit Information Visit Type Initial Evaluation Visit Start Time 11:15 Visit Stop Time 12:00 Total Visit Minutes 45 Visit Number 1 Evaluation Information Evaluation Date 05/16/21 PT-OP-B Current Condition Start: 05/07/21 08:21 Freq: Status: Active Protocol: Document 05/16/21 12:00 OF (Rec: 05/16/21 12:53 OF [id number]) Current Condition History of Current Condition Onset Date 05/09/21 Current Complaints pain, loss of ROM in R knee History of Current Condition Pt has had chronic knee pain, recently underwent R TKA Treatment Goals Patient/Caregiver Goals get back to moving on my own Prior Functional Status Baseline Function- ADL's Independent Baseline Function- Mobility Independent Baseline Function- Gait Independent Current Functional Impairments (Reported) Functional Limitations- ADL's Pt has difficulty with transfers, AMB, pain with ADL PT-OP-C Subjective Start: 05/07/21 08:21 Freq: Status: Active Protocol: Document 05/16/21 12:00 OF (Rec: 05/16/21 12:53 OF [id number]) OP-PT Subjective Patient Comments Patient Comments Pt states she is bruised, sore , fatigued after surgery Patient Reported Progress Improving Patient Questionnaires Lower Extremity Functional Scale LEFS Score 25 LEFS Impairment 60 to 79% Impaired (Score 17- 31) OP-PT Pain Assessment Location Right Knee Pain Location Details post knee Intensity 6 Description Aching Frequency Frequent Pain Aggravating Factors Changing Position,ADL's, Activity,Exercise,Standing, Walking Pain Alleviating Factors Medication,Inactivity Home Pain Medication Use Pain Medications Used Yes Patient Goal ibuprofen, tylenol PT-OP-G Mobility & Gait Start: 05/07/21 08:21 Freq: Status: Active Protocol: Document 05/16/21 12:00 OF (Rec: 05/16/21 12:53 OF [id number]) OP Mobility Evaluation Functional Movements Squats poor weightshifting due to R LE pain OP Gait Assessment Gait Gait Assistance Required: Standby Assistance Distance (Feet) 200 Able to Maintain Weight Bearing Status Yes During Gait Assistive Devices Assistive Device Front Wheeled Walker Gait Deviations General Gait Pattern Antalgic,Decreased Stride Length,Decreased Feet Clearance,Lateral Trunk Lean Factors Limiting Gait Function Factors Limiting Gait Function Decreased Strength,Limited Range of Motion,Pain,Poor Balance Comments Gait Comments poor pushoff on R, impaired stance on R, antalgic PT-OP-K Range of Motion Start: 05/07/21 08:21 Freq: Status: Active Protocol: Document 05/16/21 12:00 OF (Rec: 05/16/21 12:53 OF [id number]) Knee Goniometric Range of Motion Knee R Knee ROM WFL No Patient Position Sitting Flexion Active (degrees) 89 Extension Active (degrees) 175 Comments pain at end range Knee ROM Limitations Knee ROM Limitations Pain,Swelling PT-OP-Q Treatments Start: 05/07/21 08:21 Freq: Status: Active Protocol: Document 05/16/21 12:00 OF (Rec: 05/16/21 12:53 OF [id number]) Cardio Equipment Recumbent Bicycle Duration (Minutes) 10 Resistance 0 Seat Position 4 Other 1/2 revolutions to improve R knee ROM Therapeutic Exercises Sitting Exercises LAQ Side right Reps/Minutes 3x10 Comments for HEP heel slide Side right Reps/Minutes 3x10 Comments cues for hold at end of AROM Standing Exercises heel lifts Side bilateral Reps/Minutes 3x10 Comments cues for knee ext Self-Care/Home Management Treatment Education Patient Education Body Mechanics,Fall Risk,Home Exercise Program,Joint Protection,Pain Management Other Education Pt advised to use Fww outside of home due to difficulty with cane PT-OP-T Assessment and Plan Start: 05/07/21 08:21 Freq: Status: Active Protocol: Document 05/16/21 12:00 OF (Rec: 05/16/21 12:53 OF [id number]) Physical Therapy Assessment Rehab Potential Rehabilitation Potential Excellent Evaluation Complexity Number of Personal Factors/Comorbidities 1-2 Number of Body Systems Impaired 1-2 Clinical Presentation at Evaluation Stable Impairments Impairments Functional Activities, Functional Mobility,Gait,Pain, ROM,Strength Goals 4 Impairment LEFS Short Term Goal (STG) Pt will improve LE function to score <20 on LEFS STG Duration 2 weeks Residential Goal (LTG) Pt will improve LE function to score <10 on LEFS 3 Impairment difficulty walking Short Term Goal (STG) pt will AMB 150ft with cane SBA to improve I with mobility STG Duration 2 weeks Grades 9 Thru 12 Visiting Teacher Goal (LTG) Pt will AMB >1000ft without AD and I to return to I community mobility 2 Impairment loss of ROM Short Term Goal (STG) Pt will demo R knee AROM of 95 -180 to normalize gait pattern STG Duration 2 weeks Grades 9 Thru 12 Visiting Teacher Goal (LTG) Pt will demo R knee AROM of 120 flexion through 180 extension to return to I PLOF LTG Duration 6 weeks 1 Impairment pt has no HEP Short Term Goal (STG) Pt will perform basic HEP with MIN A STG Duration 2 weeks Grades 9 Thru 12 Visiting Teacher Goal (LTG) Pt will perform advanced HEP for LE strengthening and AAROM LTG Duration 6 weeks Progress Towards Goals Progress Towards Goals Slow Progress due to Activity Tolerance Assessment Summary Assessment Nay is a 56 YO female S/P R TKA. She has arthritis in L knee and has previously underwent ANUJA on L. She is motivated to return to I PLOF. She has pain with all mobility and difficulty sleeping at this time. She has poor ROM and will require continued therapy to restore ROM, improve gait pattern, reduce fall risk, and return to I PLOF. Physical Therapy Plan Frequency and Duration Frequency of Treatment 2x/Week Duration of Treatment 6 weeks Plan of Care Start Date 05/16/21 Plan of Care End Date 07/23/21 Therapeutic Interventions Therapeutic Interventions Balance Training,Gait Training ,Home Exercise Program,Joint Mobilizations,Manual Therapy, Neuromuscular Re-education, Patient/Caregiver Education, Self-Care/Home Management, Therapeutic Activities, Therapeutic Exercises Modalities Cold Pack/Ice Massage,Electric Stimulation Next Visit Focus/Plan Next Note Type Treatment Note Next Visit Plan assess standing heel lifts/ stretches. Progress 1/2 revolutions on bike. Initiate standing quad strengthening. AAROM for knee flexion/ext if tolerated
--- NOTE | 2021-05-16 12:54 | PT.OPPOC ---
Physical, Occupational & Speech Therapy At [facility] Current Diagnoses Unilateral primary osteoarthritis, right knee (05/16/21) Visit Care Team Role Provider Type Other Providers Specialty: Address: Phone: Fax: Email: Ene Burgos MD Family Provider Non-Staff Primary Care Provider Specialty: Family Practice Address: [address] [place] [address], [address] Email: Rachel Virgen MD Attending Provider Physician Referring Provider Specialty: Orthopedic Surgery Address: [address] [place] [address], [id number] Email: [email or web address] Plan Of Care PT-OP-T Assessment and Plan Start: 05/07/21 08:21 Freq: Status: Active Protocol: Document 05/16/21 12:00 OF (Rec: 05/16/21 12:53 OF [id number]) Physical Therapy Assessment Rehab Potential Rehabilitation Potential Excellent Evaluation Complexity Number of Personal Factors/Comorbidities 1-2 Number of Body Systems Impaired 1-2 Clinical Presentation at Evaluation Stable Impairments Impairments Functional Activities, Functional Mobility,Gait,Pain, ROM,Strength Goals 4 Impairment LEFS Short Term Goal (STG) Pt will improve LE function to score <20 on LEFS STG Duration 2 weeks Blood Bank Technologist Goal (LTG) Pt will improve LE function to score <10 on LEFS 3 Impairment difficulty walking Short Term Goal (STG) pt will AMB 150ft with cane SBA to improve I with mobility STG Duration 2 weeks Blood Bank Technologist Goal (LTG) Pt will AMB >1000ft without AD and I to return to I community mobility 2 Impairment loss of ROM Short Term Goal (STG) Pt will demo R knee AROM of 95 -180 to normalize gait pattern STG Duration 2 weeks Retirement Goal (LTG) Pt will demo R knee AROM of 120 flexion through 180 extension to return to I PLOF LTG Duration 6 weeks 1 Impairment pt has no HEP Short Term Goal (STG) Pt will perform basic HEP with MIN A STG Duration 2 weeks Blood Bank Technologist Goal (LTG) Pt will perform advanced HEP for LE strengthening and AAROM LTG Duration 6 weeks Progress Towards Goals Progress Towards Goals Slow Progress due to Activity Tolerance Assessment Summary Assessment Nay is a 56 YO female S/P R TKA. She has arthritis in L knee and has previously underwent ANUJA on L. She is motivated to return to I PLOF. She has pain with all mobility and difficulty sleeping at this time. She has poor ROM and will require continued therapy to restore ROM, improve gait pattern, reduce fall risk, and return to I PLOF. Physical Therapy Plan Frequency and Duration Frequency of Treatment 2x/Week Duration of Treatment 6 weeks Plan of Care Start Date 05/16/21 Plan of Care End Date 06/23/21 Therapeutic Interventions Therapeutic Interventions Balance Training,Gait Training ,Home Exercise Program,Joint Mobilizations,Manual Therapy, Neuromuscular Re-education, Patient/Caregiver Education, Self-Care/Home Management, Therapeutic Activities, Therapeutic Exercises Modalities Cold Pack/Ice Massage,Electric Stimulation Next Visit Focus/Plan Next Note Type Treatment Note Next Visit Plan assess standing heel lifts/ stretches. Progress 1/2 revolutions on bike. Initiate standing quad strengthening. AAROM for knee flexion/ext if tolerated Plan of Care Dates Plan of Care Start Date 05/16/21 Plan of Care End Date 06/23/21 Electronically Signed by: Umer Jones, PT 05/16/21 [id number] Please Sign and Return: I have reviewed this Plan of Care and certify that the skilled therapy services above are required to meet the patient?s needs. Physician Signature Date Printed Name and Credentials Clinical Instructor Signature Printed Name and Credentials
--- NOTE | 2021-05-19 10:40 | PT.OTN ---
Current Diagnoses Unilateral primary osteoarthritis, right knee (05/19/21) Physical Therapy Treatment Note PT-OP-A Visit Information Start: 05/07/21 08:21 Freq: Status: Active Protocol: Document 05/19/21 09:47 SP (Rec: 05/19/21 12:19 SP [id number]) Out-Patient Physical Therapy Visit Information Visit Information Visit Type Treatment Note Visit Note Pt reported will keep next appt, then please DC due to insurance and attending practice in [facility] where used to work. Mother attended tx for caregiver assist trng for massage, any assist can give pt/daughter. Visit Start Time 09:47 Visit Stop Time 10:40 Total Visit Minutes 53 Visit Number 2 Number of INVENTORY REPRESENTATIVE Visits 1 Evaluation Information Evaluation Date 05/16/21 PT-OP-B Current Condition Start: 05/07/21 08:21 Freq: Status: Active Protocol: Document 05/16/21 12:00 OF (Rec: 05/16/21 12:53 OF [id number]) Current Condition History of Current Condition Onset Date 05/09/21 Current Complaints pain, loss of ROM in R knee History of Current Condition Pt has had chronic knee pain, recently underwent R TKA Treatment Goals Patient/Caregiver Goals get back to moving on my own Prior Functional Status Baseline Function- ADL's Independent Baseline Function- Mobility Independent Baseline Function- Gait Independent Current Functional Impairments (Reported) Functional Limitations- ADL's Pt has difficulty with transfers, AMB, pain with ADL PT-OP-C Subjective Start: 05/07/21 08:21 Freq: Status: Active Protocol: Document 05/19/21 09:47 SP (Rec: 05/19/21 12:19 SP [id number]) OP-PT Subjective Patient Comments Patient Comments Pt arrives without AD with lateral lean/ antalgic gait. states follows up with physician next sat. Today having pain and cramping in R calf, HS and wants assistance to lessen. Has been walking in house mostly without AD. 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 Noted bruising HS and calf, achilles post heel, edema med/ lat lower thigh. PT-OP-G Mobility & Gait Start: 05/07/21 08:21 Freq: Status: Active Protocol: Document 05/16/21 12:00 OF (Rec: 05/16/21 12:53 OF [id number]) OP Mobility Evaluation Functional Movements Squats poor weightshifting due to R LE pain OP Gait Assessment Gait Gait Assistance Required: Standby Assistance Distance (Feet) 200 Able to Maintain Weight Bearing Status Yes During Gait Assistive Devices Assistive Device Front Wheeled Walker Gait Deviations General Gait Pattern Antalgic,Decreased Stride Length,Decreased Feet Clearance,Lateral Trunk Lean Factors Limiting Gait Function Factors Limiting Gait Function Decreased Strength,Limited Range of Motion,Pain,Poor Balance Comments Gait Comments poor pushoff on R, impaired stance on R, antalgic PT-OP-K Range of Motion Start: 05/07/21 08:21 Freq: Status: Active Protocol: Document 05/19/21 09:47 SP (Rec: 05/19/21 12:19 SP [id number]) Knee Goniometric Range of Motion Knee R Knee ROM WFL No Comments supine heel slide AROM 91* supine over 55cm tball w/ gait belt AAROM 98* self performance PT-OP-Q Treatments Start: 05/07/21 08:21 Freq: Status: Active Protocol: Document 05/19/21 09:47 SP (Rec: 05/19/21 12:19 SP [id number]) Therapeutic Exercises Supine Exercises knee flexion over tball Supine Exercise Name hand outs provided- give at next appt Side right Resistance AAROM Equipment Used 55cm ball, strap assist Reps/Minutes x10 Comments more comforting/relaxed 98* ( discussed can supine HS on wall) post op ex Supine Exercise Name HS, quad set, SLR, ankle pumps . Side right Equipment Used issued strap for self HS assist ROM Reps/Minutes 10 reps each Comments felt better to perform after manual STMs to HS, calf Prone Exercises prone hang Prone Exercise Name discussed not performed for ROM R knee extension. Side right Reps/Minutes 3x 20-30 Standing Exercises heel lifts Side bilateral Reps/Minutes 3x10 Comments cues for knee ext Gait Training Gait Activity gait SPC Description 2 pt gait Device Used SPC Level of Assistance S Surface firm Distance/Duration 50 ft x2 Treatment Focus level pelvis, quad facilitation Comments improved post manual, and HEP review, good quad assist using SPC in LUE- pt stated will get one after tx. Manual Therapy Treatment Soft Tissue Mobilization HS, calf Body Location retrograde massage Taping K taping Body Location R distal adductors, ITB areas of swelling Treatment Focus decrease swelling, improve lymph return Type of Tape Kinesio Tape Skin Inspection intact, normal flesh lymph edema Comments octopus distal to prox 3 leg from anchoring- unsure will secure due to previous had oils on leg- next tx can add biofreeze for improved adhesive. PT-OP-R Modalities Start: 05/07/21 08:21 Freq: Status: Active Protocol: Document 05/19/21 09:47 SP (Rec: 05/19/21 12:19 SP [id number]) Hot Pack/Cold Pack Treatment cryocuff Location R knee Patient Position Hooklying Treatment Duration (minutes) 10 Patient Tolerance Good Comments decreased pain. PT-OP-T Assessment and Plan Start: 05/07/21 08:21 Freq: Status: Active Protocol: Document 05/19/21 09:47 SP (Rec: 05/19/21 12:19 SP [id number]) Physical Therapy Assessment Goals 4 Impairment LEFS Short Term Goal (STG) Pt will improve LE function to score <20 on LEFS STG Duration 2 weeks Manager Of Financial Planning Goal (LTG) Pt will improve LE function to score <10 on LEFS 3 Impairment difficulty walking Short Term Goal (STG) pt will AMB 150ft with cane SBA to improve I with mobility STG Duration 2 weeks Manager Of Financial Planning Goal (LTG) Pt will AMB >1000ft without AD and I to return to I community mobility 2 Impairment loss of ROM Short Term Goal (STG) Pt will demo R knee AROM of 95 -180 to normalize gait pattern 05/19/21: progressing AROM HS 4 -91 deg, AAROM 98* using strap . STG Duration 2 weeks Halfway Goal (LTG) Pt will demo R knee AROM of 120 flexion through 180 extension to return to I PLOF LTG Duration 6 weeks 1 Impairment pt has no HEP Short Term Goal (STG) Pt will perform basic HEP with MIN A STG Duration 2 weeks Manager Of Financial Planning Goal (LTG) Pt will perform advanced HEP for LE strengthening and AAROM LTG Duration 6 weeks Assessment Summary Assessment Pt improved decrease pain, increased ROM and good response to HEP review. Intiated use of SPC during gait with improvement in demonstration decrease antalgic gait. Pt will go get SPC after appt for normalizing quality and potentially decrease compensations and maybe pain as result. Physical Therapy Plan Frequency and Duration Frequency of Treatment 2x/Week Duration of Treatment 6 weeks Plan of Care Start Date 05/16/21 Plan of Care End Date 06/23/21 Therapeutic Interventions Therapeutic Interventions Balance Training,Gait Training ,Home Exercise Program,Joint Mobilizations,Manual Therapy, Neuromuscular Re-education, Patient/Caregiver Education, Self-Care/Home Management, Therapeutic Activities, Therapeutic Exercises Modalities Cold Pack/Ice Massage,Electric Stimulation Next Visit Focus/Plan Next Note Type Treatment Note Next Visit Plan Assess standing heel lifts/ stretches. Progress 1/2 revolutions on bike. Initiate standing quad strengthening. AAROM for knee flexion/ext if tolerated Ktaping help for edema
--- NOTE | 2021-05-23 15:07 | PT.OTN ---
Current Diagnoses Unilateral primary osteoarthritis, right knee (05/23/21) Physical Therapy Treatment Note PT-OP-A Visit Information Start: 05/07/21 08:21 Freq: Status: Active Protocol: Document 05/23/21 10:34 SAK (Rec: 05/23/21 11:19 SAK [id number]) Out-Patient Physical Therapy Visit Information Visit Information Visit Type Discharge Summary Visit Start Time 10:30 Visit Number 3 Number of OIL PRODUCER Visits 0 Evaluation Information Evaluation Date 05/16/21 PT-OP-B Current Condition Start: 05/07/21 08:21 Freq: Status: Active Protocol: Document 05/16/21 12:00 OF (Rec: 05/16/21 12:53 OF [id number]) Current Condition History of Current Condition Onset Date 05/09/21 Current Complaints pain, loss of ROM in R knee History of Current Condition Pt has had chronic knee pain, recently underwent R TKA Treatment Goals Patient/Caregiver Goals get back to moving on my own Prior Functional Status Baseline Function- ADL's Independent Baseline Function- Mobility Independent Baseline Function- Gait Independent Current Functional Impairments (Reported) Functional Limitations- ADL's Pt has difficulty with transfers, AMB, pain with ADL PT-OP-C Subjective Start: 05/07/21 08:21 Freq: Status: Active Protocol: Document 05/23/21 10:34 SAK (Rec: 05/23/21 11:19 SAK [id number]) OP-PT Subjective Patient Comments Patient Comments More sore today, maybe due to not moving much yet today. Feels bandage restricts a little, sees doctor Param tomorrow. Compliant to HEP. Today last day PT at this clinic, will be transferring to clinic where she used to work ([employer] in [place] ). Using cane for gait due to pain. PT-OP-G Mobility & Gait Start: 05/07/21 08:21 Freq: Status: Active Protocol: Document 05/16/21 12:00 OF (Rec: 05/16/21 12:53 OF [id number]) OP Mobility Evaluation Functional Movements Squats poor weightshifting due to R LE pain OP Gait Assessment Gait Gait Assistance Required: Standby Assistance Distance (Feet) 200 Able to Maintain Weight Bearing Status Yes During Gait Assistive Devices Assistive Device Front Wheeled Walker Gait Deviations General Gait Pattern Antalgic,Decreased Stride Length,Decreased Feet Clearance,Lateral Trunk Lean Factors Limiting Gait Function Factors Limiting Gait Function Decreased Strength,Limited Range of Motion,Pain,Poor Balance Comments Gait Comments poor pushoff on R, impaired stance on R, antalgic PT-OP-K Range of Motion Start: 05/07/21 08:21 Freq: Status: Active Protocol: Document 05/19/21 09:47 SP (Rec: 05/19/21 12:19 SP [id number]) Knee Goniometric Range of Motion Knee R Knee ROM WFL No Comments supine heel slide AROM 91* supine over 55cm tball w/ gait belt AAROM 98* self performance PT-OP-Q Treatments Start: 05/07/21 08:21 Freq: Status: Active Protocol: Document 05/23/21 10:34 SAK (Rec: 05/23/21 11:19 SAK [id number]) Cardio Equipment Recumbent Bicycle Duration (Minutes) 10 Resistance 0 Seat Position 6 to 4 Other full revolutions Gym Equipment Shuttle Recovery Bilateral Squats Resistance 37 Shuttle Recovery Platform Stable Reps/Time 10x Therapeutic Exercises Supine Exercises SAQ Reps/Minutes 10x knee flexion over tball Supine Exercise Name hand outs provided- give at next appt Side right Resistance AAROM Equipment Used 55cm ball, strap assist Reps/Minutes x10 Comments more comforting/relaxed 98* ( discussed can supine HS on wall) Prone Exercises prone hang Side right Reps/Minutes 3x 20-30 PT-OP-R Modalities Start: 05/07/21 08:21 Freq: Status: Active Protocol: Document 05/23/21 10:34 SAK (Rec: 05/23/21 11:19 SAK [id number]) Hot Pack/Cold Pack Treatment cryocuff Location R knee Patient Position Hooklying Treatment Duration (minutes) 10 Patient Tolerance Good Comments decreased pain. PT-OP-T Assessment and Plan Start: 05/07/21 08:21 Freq: Status: Active Protocol: Document 05/23/21 10:34 SAK (Rec: 05/23/21 11:19 SAK [id number]) Physical Therapy Assessment Goals 4 Impairment LEFS Short Term Goal (STG) Pt will improve LE function to score <20 on LEFS STG Duration 2 weeks Skilled Nursing Goal (LTG) Pt will improve LE function to score <10 on LEFS 3 Impairment difficulty walking Short Term Goal (STG) pt will AMB 150ft with cane SBA to improve I with mobility STG Duration 2 weeks Skilled Nursing Goal (LTG) Pt will AMB >1000ft without AD and I to return to I community mobility 2 Impairment loss of ROM Short Term Goal (STG) Pt will demo R knee AROM of 95 -180 to normalize gait pattern 05/19/21: progressing AROM HS 4 -91 deg, AAROM 98* using strap . STG Duration 2 weeks Skilled Nursing Goal (LTG) Pt will demo R knee AROM of 120 flexion through 180 extension to return to I PLOF LTG Duration 6 weeks 1 Impairment pt has no HEP Short Term Goal (STG) Pt will perform basic HEP with MIN A STG Duration 2 weeks Licensed Physical Therapist Goal (LTG) Pt will perform advanced HEP for LE strengthening and AAROM LTG Duration 6 weeks Progress Towards Goals Progress Towards Goals Progressing Toward Goals Assessment Summary Assessment Good progress with ROM, improved gait with use of SPC. Patient appears compliant to HEP, use of ice, though stil moderately swollen, encouraged thigh-high compression stocking. Physical Therapy Plan Discharge Physical Therapy Discharge Reasons Patient Request Discharge Comments transferring to different clinic.
== END 2021-07-04 14:21 | disposition home or self-care (01) ==
LOC: PHYS 10:30
PROVIDERS: Family Provider Family Medicine; PCP Family Medicine; Referring Provider Orthopaedic Surgery; Visit Provider Orthopaedic Surgery
DX: M17.11 Unilateral primary osteoarthritis, right knee (principal)
CPT/HCPCS: 97010; 97110; 97116; 97140; 97161

== ENCOUNTER → 2021-12-22 06:41 | Outpatient (CLI) | payer OTHER, MEDICAID, SELFPAY ==
[2021-05-09 13:23] VITALS: BMI 27.1
--- NOTE | 2021-12-22 | DI.MRI.S_ITS ---
PROCEDURE: MR KNEE LT WO CON INDICATIONS: Unilateral primary osteoarthritis, left knee TECHNIQUE: Noncontrast sagittal PD fast spin echo and T2 fast spin echo with fat saturation, sagittal 3-D FLASH with fat saturation; coronal T1 spin echo and PD fast spin echo with fat saturation, and axial PD fast spin echo with fat saturation through the knee. COMPARISON: [facility], MR, MR KNEE RT WO CON, 03/17/2021, 14:31. FINDINGS: Image quality: Excellent. Menisci: Surfacing signal in the posterior horn, lateral meniscus, compatible with meniscal tear. Non surfacing signal in the medial meniscus, compatible with intrasubstance degeneration. Cruciate ligaments: The anterior and posterior cruciate ligaments appear intact. Medial structures: The medial collateral ligament appears intact. Visualized portions of the pes anserinus tendons appear normal. No abnormal bursal fluid. Lateral structures: The lateral collateral ligament, long and short heads of the biceps femoris tendon appear intact. The popliteus tendon appears normal. Iliotibial band appears normal. Anterior structures: The quadriceps and patellar tendons appear intact. Patellar alignment is normal. No femoral trochlear dysplasia or ventral trochlear prominence. No edema in the infrapatellar fat pad. Bones and cartilage: No bone marrow contusions or fractures. Minimal subchondral edema in the lateral tibial plateau. Tricompartmental osteophytosis. Signal heterogeneity and fissuring of the trochlear, patellar apex and medial femoral condyle hyaline cartilage. Joint space: Small knee joint fluid. No Ruvalcaba's cyst. IMPRESSION: 1. Posterior horn, lateral meniscal tear. 2. Small joint effusion. 3. Degenerative changes of the medial and patellofemoral compartment hyaline cartilage. Dictated by: Anatoly Johnston M.D. on 12/22/2021 at 8:50 Approved by: Anatoly Johnston M.D. on 12/22/2021 at 9:02
== END ==
PROVIDERS: Family Provider Family Medicine; PCP Family Medicine; Referring Provider Orthopaedic Surgery; Visit Provider Orthopaedic Surgery
DX: S83.282A Other tear of lateral meniscus, current injury, left knee, initial encounter (principal); M17.12 Unilateral primary osteoarthritis, left knee; M25.462 Effusion, left knee
CPT/HCPCS: 73721

== ENCOUNTER → 2022-02-07 16:09 | Outpatient (CLI) | payer OTHER, MEDICAID, SELFPAY ==
[2021-05-09 13:23] VITALS: BMI 27.1
[2022-02-07 16:51] LABS: Add Manual Diff / Slide Review NO; Basophils Absolute Auto 0 /uL (0-100); Basophils Percent Auto 0.6 % (0-2); Eosinophils Absolute Auto 300 /uL (0-450); Eosinophils Percent Auto 5.1 % (2-4); Hematocrit 39.7 % (36-46); Hemoglobin 13.3 g/dL (12.0-16.0); Lymphocytes Absolute Auto 1600 /uL (1100-4500); Mean Corpuscular HGB Conc 33.5 % (30-36); Mean Corpuscular Volume 86.6 fL (80-100); Monocytes Absolute Auto 700 /uL (0-900); Monocytes Percent Auto 13.2 % (3-14); Neutrophils Absolute Auto 2800 /uL (1500-7000); Neutrophils Percent Auto 52.1 % (50-75); Platelet Count 241 X10^3/uL (150-400); Red Blood Cell Count 4.58 X10^6/uL (4.0-5.2); White Blood Cell Count 5.4 X10^3/uL (4.5-11.0)
[2022-02-07 17:02] LABS: Appearance Urine UA CLEAR; Bilirubin Urine UA NEGATIVE (NEGATIVE); Color Urine UA YELLOW; Glucose Urine UA NEGATIVE (Negative); Ketones Urine UA TRACE (NEGATIVE); Leukocyte Esterase Urine UA NEGATIVE (NEGATIVE); Nitrite Urine UA NEGATIVE (Negative); Occult Blood Urine UA NEGATIVE (Negative); Protein Urine UA NEGATIVE (Negative); Specific Gravity Urine UA 1.025 (1.000-1.035); Urobilinogen Urine UA 0.2 E.U./dL (0.2)
[2022-02-07 17:07] LABS: Hemoglobin A1C% w Est Avg Glu 5.3 % (4.0-6.0)
[2022-02-07 17:08] LABS: BUN Creatinine Ratio 17.4 (6-22); Blood Urea Nitrogen 15 mg/dL (7-17); Calcium 9.1 mg/dL (8.4-10.2); Carbon Dioxide 29 mmol/L (22-32); Chloride 103 mmol/L (98-107); Estimated Glomerular Filt Rate > 60.0 mL/min (>60); Glucose 103 mg/dL (70-100); Sodium 136 mmol/L (137-145)
[2022-02-07 17:20] LABS: RBC Urine None Seen (0-5/HPF)
[2022-02-07 17:21] LABS: Amorphous Sediment Urine 1+; Bacteria Urine None Seen; Calcium Oxalate Crystals Urine Many; Culture Indicated Urine Cult Not Indicated; Mucus Urine 1+ (Negative); Squamous Epithelial Cell Urine 0-1 /HPF (0-5/HPF); Uric Acid Crystals Urine Moderate; WBC Urine 0-1/HPF (0-5/HPF)
[2022-02-07 17:24] LABS: HEMOLYSIS 122 (0-50); Potassium 4.5 mmol/L (3.4-5.1)
== END ==
PROVIDERS: Family Provider Family Medicine; PCP Family Medicine; Referring Provider Orthopaedic Surgery; Visit Provider Orthopaedic Surgery
DX: Z01.812 Encounter for preprocedural laboratory examination (principal); R73.9 Hyperglycemia, unspecified; N39.0 Urinary tract infection, site not specified
CPT/HCPCS: 36415; 80048; 81001; 83036; 85025

== ENCOUNTER → 2022-02-28 10:23 | Outpatient (CLI) | payer OTHER, MEDICAID, SELFPAY ==
[2021-05-09 13:23] VITALS: BMI 27.1
[2022-02-28 12:52] LABS: COVID19 -Nasal RAPID Negative (Negative)
== END ==
PROVIDERS: PCP Family Medicine; Visit Provider Family Medicine Sleep Medicine
DX: Z20.822 Contact with and (suspected) exposure to COVID-19 (principal)
CPT/HCPCS: 87635; C9803

== ENCOUNTER 2022-03-01 12:10 | Day surgery (SDC) | payer OTHER, MEDICAID, SELFPAY ==
[2021-05-09 13:23] VITALS: BMI 27.1
[2022-02-27 09:01] VITALS: BMI 27.4
[2022-03-01] VITALS (12 sets, daily range): BP systolic 86–138; BP diastolic 45–88; PULSE 58–70; RESP 11–18; TEMP 36.1–36.5; O2SAT 97–99; BMI 27.4
--- NOTE | 2022-03-01 06:00 | DI.RAD.S_ITS ---
PROCEDURE: XR KNEE LT 1TO2V INDICATIONS: TKA TECHNIQUE: 2 view(s) of the knee acquired. COMPARISON: [facility], CR, XR KNEE RT 1TO2V, 05/09/2021, 12:31. FINDINGS: Bones: Patient is status post knee joint arthroplasty. Hardware components are in expected positions. Visualized bony structures are intact. Soft tissues: Overlying postoperative changes are noted. IMPRESSION: Total left knee arthroplasty in good position Approved by: Michelet Hines M.D. on 03/01/2022 at 15:43
[2022-03-01] MEDS: ACETAMINOPHEN 325 MG TABLET 975 MG PO (12:53)
[2022-03-01] MEDS: LACTATED RINGERS 1,000 ML 42 ML IV ×2 (12:53→15:24)
[2022-03-01] MEDS: CELECOXIB 200 MG CAPSULE PO (12:55)
[2022-03-01] MEDS: PREGABALIN 75 MG CAPSULE PO (12:57)
[2022-03-01] MEDS: VANCOMYCIN 1,000 MG/200 ML PIGGYBACK 200 MG IV (13:10)
--- NOTE | 2022-03-01 14:02 | PM.PREOP ---
Pre-operative Note COVID-19 COVID-19 status: Negative Interval Note History & Physical reviewed/Exam performed by Physician: Yes Changes to H&P: No
--- NOTE | 2022-03-01 14:03 | PM.PREOP ---
Pre-operative Note COVID-19 COVID-19 status: Negative Interval Note History & Physical reviewed/Exam performed by Physician: Yes Changes to H&P: No
--- NOTE | 2022-03-01 14:05 | P.OP_ITS ---
Operative Date/Time/Diagnoses Date of procedure: 03/01/22 Time of procedure: 14:25 Pre-op diagnosis: Severe left knee osteoarthritis Post-op diagnosis: same Procedure & Clinicians Procedure: Left total knee arthroplasty Same procedure as scheduled: Yes Indications: The patient has had progressively worsening left knee pain with radiographic changes consistent with arthritis. Non-operative management has failed and the patient has requested total knee replacement. The risks, benefits and alternatives to surgery were discussed with the patient prior to proceeding. Risks discussed included, but were not limited to, failure to relieve pain, stiffness, infection, nerve damage, deep venous thrombosis, pulmonary embolism, stroke, coma, heart attack, permanent paralysis and , as well as the potential need for eventual revision of the prosthetic. Surgeon: Rachel Virgen Outside Maintenance Worker: Israel Naranjo Anesthesia Type: General and Spinal Operative Notes Findings: Severe left knee osteoarthritis, good stability Closure Type: primary Specimen(s): none sent Prosthetic devices, grafts, tissues, transplants, or devices: [facility] 2 size 4 femur, size 3 tibia, 35 by 7.5 mm patella, +9 poly Applied: drain(s) Estimated Blood Loss (mL): 250 Blood products transfused: none Tourniquet time (min): 63 Procedure in detail: The patient was seen in the pre-operative area, where the patient identified the left knee as the operative site and this was marked with my initials. The patient received pre-operative antibiotics, and was taken to the operating room and placed on the operative table in the supine position. After satisfactory anesthesia, a crew team member out was performed. The left leg was encircled with a tourniquet about the proximal thigh, and the leg was prepared from the toes to the tourniquet with ChloroPrep in the usual fashion and draped through sterile drapes. The leg was elevated and exsanguinated with Eschmark bandage and the tourniquet inflated to [250] mmHg pressure. The knee was approached through an approximately 18 cm incision centered over the patella and carried into the knee through a medial parapatellar arthrotomy. Portion of the medial and lateral meniscus was resected. Soft tissue was carefully mobilized around the patella the patella was measured with a caliper. Bone was resected from the patella and the patellar height was reconstituted with up an appropriate sized patellar component. A cover was then placed on the patella. A small amount of additional medial and lateral meniscus was resected. The visionare guide fit well to the distal femur. It looked like an appropriate distal femoral cut and the cut was made without difficulty. The rotation was assessed and the appropriate size femoral guide was placed on the distal femur and finishing cuts were made. There was no evidence of notching. The anterior, posterior and chamfer cuts were then made. The posterior osteophytes and soft tissues were then removed. The posterior capsule was injected with part of a mixture of 60 ml 0.25% Marcaine mixed with 20 ml Exparel for post operative pain control. The remainder of this mixture was injected into the capsule and subcutaneous tissues during cement curing. The tibia was prepared and the visionaire guide fit adequately to the distal tibia. The rotation was assessed. The patient was placed in extension residual medial and lateral meniscus as well as any residual bone was carefully resected. [No] additional tibia was resected. Hemostasis was achieved especially posteriorly. Additional local was injected into the posterior capsule. The extension gap was assessed and additional releases for gap balancing were performed as necessary. It was checked with the gap commodity merchant. The femoral component was trial was placed and the notch was finished. Trial tibial and femoral components were then placed and the knee placed through a range of motion. Range of motion was [0-130], with good stability throughout the range. The trials were then removed, and the tibia was finished. The bone was prepared with pulsatile lavage, and dried with a sponge. Cement was applied and the final prosthetics placed. Excess cement was removed during and after cement curing. A brief Betadine soak was performed. After confirming there was no extruded cement posteriorly, the final tibial insert was placed. The knee was copiously irrigated and the tourniquet deflated. Hemostasis was obtained with the Bovie cautery. A drain was placed and brought out superolaterally. The capsule was closed with interrupted Vicryl suture. The subcutaneous layer was closed with barbed sutures, and the skin with a running 3-0 V-Lock suture and Surgical glue. An Aquacel Ag dressing was applied and the patient was taken to recovery having tolerated the procedure well. Complications: none Post-operative Condition: stable Disposition: Acute Care Plan for aftercare: The patient will be maintained on a standard total knee replacement protocol with weight bearing as tolerated. The patient will receive aspirin and sequential compression devices for DVT prophylaxis. The patient will be discharged home when safe for the home environment.
[2022-03-01] MEDS: TRANEXAMIC ACID 1,000 MG VIAL 2000 MG INJ ×2 (14:37→15:59)
[2022-03-01] MEDS: CEFAZOLIN 2 GM/20 ML SYRINGE IV (14:39)
--- NOTE | 2022-03-01 14:50 | SUR.OPER ---
Supine on padded OR bed. Pillow under head, arms secured on padded armboards <90 degree abduction. Safety belt across torso. Non-operative leg secured with tape over blanket over lower leg. Operative leg secured in DeMayo positioner. Foam padded brace at thigh of operative leg.
[2022-03-01] MEDS: BUPIVACAINE 0.25% (PF) 60 ML, EPINEPHrine 0.3 MG INJ (15:08)
[2022-03-01] MEDS: BUPIVACAINE LIPOSOME 266 MG/20 ML VIAL INJ (15:40)
[2022-03-01] MEDS: LACTATED RINGERS 1,000 ML 100 ML IV (17:13)
[2022-03-01] MEDS: IBUPROFEN 400 MG TABLET PO ×2 (17:21→20:44)
[2022-03-01] MEDS: OXYCODONE IR 10 MG TABLET PO (18:52)
[2022-03-01] MEDS: TRAZODONE 100 MG TABLET 200 MG PO (20:44)
[2022-03-01] MEDS: ASPIRIN EC 81 MG TABLET PO (20:45)
[2022-03-01] MEDS: DOCUSATE 100 MG CAPSULE PO (20:45)
[2022-03-01] MEDS: ACETAMINOPHEN 325 MG TABLET 650 MG PO (20:45)
[2022-03-01] MEDS: OXYCODONE IR 5 MG TABLET PO (23:42)
[2022-03-02] VITALS: BP 123/75; PULSE 63; RESP 18; TEMP 36.9; O2SAT 97
[2022-03-02] MEDS: CEFAZOLIN 2 GM/20 ML SYRINGE IV ×2 (00:35→05:39)
[2022-03-02] MEDS: IBUPROFEN 400 MG TABLET PO ×5 (00:35→16:15)
[2022-03-02] MEDS: OXYCODONE IR 10 MG TABLET PO ×5 (02:35→16:16)
[2022-03-02 04:25] VITALS: BP 99/54; PULSE 64; RESP 18; TEMP 36.4; O2SAT 94
[2022-03-02 05:23] LABS: Hemoglobin 12.1 g/dL (12.0-16.0)
[2022-03-02] MEDS: LACTATED RINGERS 1,000 ML 100 ML IV (05:48)
[2022-03-02] MEDS: DOCUSATE 100 MG CAPSULE PO (08:11)
[2022-03-02] MEDS: ASPIRIN EC 81 MG TABLET PO (08:12)
[2022-03-02] MEDS: buPROPion XL 150 MG TAB 300 MG PO (08:12)
[2022-03-02] MEDS: DULOXETINE 30 MG CAPSULE 60 MG PO (08:12)
[2022-03-02] MEDS: ACETAMINOPHEN 325 MG TABLET 650 MG PO ×2 (08:12→14:05)
[2022-03-02 08:25] VITALS: BP 100/63; PULSE 72; RESP 16; TEMP 36.5; O2SAT 95
--- NOTE | 2022-03-02 11:06 | PT.IIE ---
Current Diagnoses Unilateral primary osteoarthritis, left knee (03/01/22) Surgery Performed Operation Date: 03/01/22 14:30 Actual Procedures p Total Knee Arthroplasty(Left) - Rachel Virgen MD Medical History (Last Reviewed 03/01/22 @ 12:35 by Doreen Mireles RN) Back pain Depression Kidney stones Osteoarthritis Physical Therapy Inpatient Evaluation/Re-Eval M1 PT/OT-IP Prior Functional Status Start: 03/02/22 13:18 Freq: NEEDED Status: Active Protocol: Document 03/02/22 11:06 AB (Rec: 03/02/22 13:36 AB [email or web address]) Medical Review Prior Functional Status Medical History Reviewed Yes Communication able to make needs known Mobility and Gait pt stated that she is independent with all mobilities and ambulation withotu AD Social History Household Members family,none Living Arrangements House Number of Floors (Floors) One Floor Number of Stairs To Enter/Railing? 3 steps B rails to enter the house Home Environment High Toilet,Walk in Shower, Built-In Shower Seat Home Equipment Front Wheel Walker,Hand Held Shower Additional Social History Comment pt lives with her mom M2 PT-IP Current Condition Start: 03/02/22 13:18 Freq: NEEDED Status: Active Protocol: Document 03/02/22 11:06 AB (Rec: 03/02/22 13:36 AB [email or web address]) Physical Therapy Current Condition Current Condition Evaluation Date 03/02/22 Treatment Diagnosis s/p L TKA; difficulty in walking Onset Date 03/01/22 M3 PT-IP Subjective Start: 03/02/22 13:18 Freq: NEEDED Status: Active Protocol: Document 03/02/22 11:06 AB (Rec: 03/02/22 13:36 AB [email or web address]) Subjective Physical Therapy Visit Type Type Initial Evaluation Visit Start Time 11:06 Visit Stop Time 11:50 Total Visit Minutes 44 Number of 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 Physical Therapy Visit Comments Patient Comments pt is agreeable to do PT Therapy Pain Assessment Pain When Pain Assessed At Rest Pain Present Pain Present Pain Reported Location Right Knee Intensity 9 Scale Used Numeric (0 - 10) Pain Management Techniques Apply Cold,Distraction, Modification of Treatment,Re- positioning,Timing of Activity with Medications M4 PT-IP Mobility and Gait Start: 03/02/22 13:18 Freq: NEEDED Status: Active Protocol: Document 03/02/22 11:06 AB (Rec: 03/02/22 13:36 AB [id number]) PT-Bed Mobility Assessment Supine to Sit Supine to Sit Standby Assistance Sit to Supine Sit to Supine Standby Assistance PT-Transfer Assessment Sit to and From Stand Sit to and from Stand Standby Assistance,Contact Guard Assistance Equipment Transfer Assistive Device Gait Belt,Front Wheeled Walker Orthotic/Prosthetic Devices or Brace: No Transfers Transfer Destination Toilet Transfer Technique ambulated Transfer Ability Level of Assist Standby Assistance,1 Person Assistance,Use of Upper Extremities Comments Mobility Comments pt completed supine to sit SBA . able to sit on EOB SBA. completed sit to stand SBA to CGA and ambulated ~ 15 to EOB using FWW CGA to SBA. completed sit to stand from EOB SBA and ambulated in the hallway ~ 150 ft SBA. completed up/down stair using B rails SBA to CGA. assisted back to her room. ambulated from w/c to the toilet using FWW SBA. completed toileting needs SBA and pt ambulated to the sink using FWW. able to maintain standing by the sink supervision while completing grooming, handwashing. Nurse took over care. Gait Assessment Gait Gait Assistance Required: Standby Assistance,Contact Guard Assist Distance (Feet) 150 Able to Maintain Weight Bearing Status Yes During Gait Assistive Devices Assistive Device Gait Belt,Front Wheeled Walker Orthotic/Prosthetic Devices or Brace: No Gait Deviations General Gait Pattern Antalgic,Decreased Stride Length,Decreased Feet Clearance Factors Limiting Gait Function Factors Limiting Gait Function Decreased Activity Tolerance, Decreased Strength,Limited Range of Motion,Pain,Poor Balance,Poor Safety Awareness Stair Climbing Assessment Evaluation Level of Assist On Stairs Standby Assistance,Contact Guard Assistance Devices Stair Climbing Assistive Devices Four Wheel Walker,Right Railing Technique/Endurance Stair Climbing Direction Ascend and Descend Stair Climbing Technique Step to Step Number of Steps Climbed 3 Query Text: Stair Climbing Set # Repetitions (reps) 1 PT-Balance Assessment Sitting Balance and Reactions Static Sitting Balance Ability Good Dynamic Sitting Balance Ability Good Standing Balance and Reactions Static Standing Balance Ability Fair Dynamic Standing Balance Ability Fair Device Used FWW M5 PT-IP Objective Assessments Start: 03/02/22 13:18 Freq: NEEDED Status: Active Protocol: Document 03/02/22 11:06 AB (Rec: 03/02/22 13:36 [id number]) Orientation Orientation/Cognition Level of Alertness Alert Orientation Name,Age,Birthday,Month,Date, Year,Day of Week,Place, Situation Language Function Ability No Deficits Noted Safety Awareness Decreased Safety Awareness Memory Description No Deficits Noted Gross Range of Motion Lower Extremity ROM Assessment Left Impaired Impairments L knee increase guarding with PROM limiting range Strength Lower Extremity Strength Assessment Left Impaired Hip 4-/5 Knee 3+/5 Coordination Assessment Gross Coordination Gross Coordination WNL Sensation Assessment Sensation Gross Sensation WNL Muscle Tone Muscle Tone WNL Yes M6 PT-IP Treatment Start: 03/02/22 13:18 Freq: NEEDED Status: Active Protocol: Document 03/02/22 11:06 AB (Rec: 03/02/22 13:36 [email or web address]) Physical Therapy Treatment Education Education Provided Precautions,Weight Bearing Status,Post-Op Packet,Safety M7 PT-IP Assessment and Plan Start: 03/02/22 13:18 Freq: NEEDED Status: Active Protocol: Document 03/02/22 11:06 AB (Rec: 03/02/22 13:36 [email or web address]) PT Summary Assessment and Plan Potential Rehabilitation Potential Good Status of Condition at Evaluation Stable Summary Impairments Pain,ROM,Strength,Balance, Coordination,Sensation,Tone, Cognition,Bed Mobility, Transfers,Gait,Activity Tolerance Assessment Summary pt requiring SBA with mobility using FWW. c/o increase pain but tolerated activities well . pt plans to go home and stated that her mother will be able to assist her if needed. pt also has outpt PT set up. pt may go home when medically stable. Goals Bed Mobility Goal Independent Transfer Goal Independent,Front Wheeled Walker Gait Goal Independent,Front Wheel Walker Gait Distance 250 Other Goals up/down 3 steps B rails mod I Days to Meet Goals 5 Frequency of Treatment Frequency Of Treatment Twice a Day Treatment Plan Physical Therapy Treatment Plan Bed Mobility Training,Transfer Training,Gait Training, Therapeutic Exercise,Balance Retraining,Post Op Education, Discharge Planning,Hot or Cold Pack,Neuromuscular Re-ed, Coordination Retraining,Manual Therapy Weight Bearing Status Weight Bearing Status Weight Bear as Tolerated Allowed Weight Bearing Amount (enter % LLE WBAT or #) (%) Recommendations To Nursing Amount of Assist Needed 1 Person Assist Discharge Recommendations PT Discharge Recommendations Home with Assistance, Outpatient PT Transportation Needs at Discharge Private Vehicle
[2022-03-02 11:55] VITALS: BP 100/75; PULSE 77; RESP 16; TEMP 36.5; O2SAT 96
--- NOTE | 2022-03-02 13:33 | PM.DS.1 ---
History of Present Illness History of Present Illness Date Patient Seen: 03/02/22 Time Patient Seen: 13:33 Chief complaint: Left knee pain s/p left TKA Narrative: Patient is complaining of moderate to severe left knee pain. She notes that his last night she did not get her pain medications on a regular scheduled basis and she is having pain that she rates 8/10. She is also somewhat distressed because her father yesterday while she was in surgery. She denies any new numbness or tingling. Her blood pressure is slightly low but she denies any lightheadedness or dizziness. Overall she is feeling okay would like to be discharged home Discharge Providers Provider Discharge Date: 03/02/22 Primary care physician: Ene Burgos MD Consults: 03/01/22 06:00 Consult to Anesthesiology Routine Comment: Consulting Provider: Anesthesiologist Reason for consultation: Regional block for post operative pain control 03/01/22 16:44 Consult to Discharge Planning Routine Comment: Consult to Physical Therapy Evaluate & Treat Comment: Physician Instructions: postop TKA protocol Consult to Respiratory Therapy Evaluate & Treat Comment: Physician Instructions: Evaluate and treat Discharge provider: Mary Cunningham PA-C Summary Hospital Course Discharge Diagnosis: Severe left knee osteoarthritis Hospital Course: Operative Date/Time/Diagnoses Date of procedure: 03/01/22 Time of procedure: 14:25 Procedure & Clinicians Procedure: Left total knee arthroplasty Same procedure as scheduled: Yes Indications: The patient has had progressively worsening left knee pain with radiographic changes consistent with arthritis. Non-operative management has failed and the patient has requested total knee replacement. The risks, benefits and alternatives to surgery were discussed with the patient prior to proceeding. Risks discussed included, but were not limited to, failure to relieve pain, stiffness, infection, nerve damage, deep venous thrombosis, pulmonary embolism, stroke, coma, heart attack, permanent paralysis and , as well as the potential need for eventual revision of the prosthetic. Surgeon: Rachel Virgen Visual Presentation Manager: Israel Naranjo Anesthesia Type: General and Spinal Operative Notes Findings: Severe left knee osteoarthritis, good stability Closure Type: primary Specimen(s): none sent Prosthetic devices, grafts, tissues, transplants, or devices: Virgen [employer] BCS 2 size 4 femur, size 3 tibia, 35 by 7.5 mm patella, +9 poly Applied: drain(s) Estimated Blood Loss (mL): 250 Blood products transfused: none Tourniquet time (min): 63 Status at Discharge Cognitive/behavioral status at discharge: oriented Functional status at discharge: uses cane/walker Overall status at discharge: patient is progressing back to baseline Exam Vital Signs (past 8 hours): - 03/02/22 08:25 03/02/22 11:55 Temperature 97.7 F 97.7 F Pulse Rate 72 77 Respiratory Rate 16 16 Blood Pressure 100/63 100/75 Pulse Oximetry 95 96 Oxygen Delivery Method Room Air Oxygen Flow Rate 0 Narrative Exam Narrative: Pleasant 57-year-old, resting comfortably in bed, no acute distress. Dressing is clean, dry, intact. Bilateral lower extremity: Motor functions are grossly intact, sensation is grossly intact to light touch, calves are soft and nontender palpation. Objective Labs Result Diagrams: 03/02/22 05:15 Labs: Laboratory Results - last 24 hr 03/02/22 05:15 Hgb 12.1 Hct 36.0 PFSH Medical History Back pain Depression Kidney stones Osteoarthritis Surgical History History of arthroplasty of left hip (2018) History of arthroplasty of right knee (05/09/21) History of arthroscopy of left shoulder Hx of arthroscopy of right knee Hx of lithotripsy Social History household members: family and none Smoking Status: Never smoker alcohol intake: former Discharge Assessment & Plan Assessment and Plan Assessment: Stable status post left total knee arthroplasty Plan of Treatment: -mobilize with PT. Weightbearing as tolerated front wheel walker -continue multimodal pain management, encouraged regular use of pain medications. -mildly hypotensive, patient is asymptomatic, denies dizziness or lightheadedness -DC home today once cleared by PT Discharge Plan Discharge Plan Patient Disposition: Home Discharge orders & Medications Discharge Orders: Discharge (Order); Ordered 03/02/22 Ordered By: Mary Cunningham Prescriptions: New ibuprofen 400 mg Tablet 400 mg PO Q4H MDD Max 2400 mg per day PRN (Reason: Pain/inflammation) Qty: 90 0RF aspirin 81 mg Tablet,Delayed Release (Dr/Ec) 81 mg PO BID 42 Days Qty: 84 0RF Rx Instructions: Prevent blood clots docusate sodium 100 mg Capsule 100 mg PO BID PRN (Reason: Constipation from narcotic pain meds) Qty: 20 0RF oxycodone 10 mg Tablet See Rx Instructions .ROUTE .COMPLEX PRN (Reason: Pain, Severe (7-10)) Qty: 42 0RF Rx Instructions: Take 1/2-1 tablet every 4 hours as needed for moderate to severe postoperative pain Continued trazodone 100 mg Tablet 200 mg PO BEDTIME 0RF bupropion HCl 300 mg Tablet Extended Release 24 Hr 300 mg PO QAM 0RF duloxetine 60 mg Capsule,Delayed Release(Dr/Ec) 60 mg PO DAILY 0RF ibuprofen 400 mg Tablet 400 mg PO Q4HR Qty: 60 0RF Changed acetaminophen 325 mg Tablet 650 mg PO TID MDD Max 3000 mg per day PRN (Reason: fever or pain) Qty: 90 0RF Discontinued aspirin 81 mg Tablet,Delayed Release (Dr/Ec) 81 mg PO BID Qty: 60 0RF Label Comments: a year ago Follow up/Referrals: Ene Burgos MD [Primary Care Provider] - aRchel Virgen MD [Physician] - (10-14 days for postoperative visit) Diet/Activity/Treatments Diet: Diet as Tolerated Other treatments: Medications: -Aspirin 81mg twice daily x6 weeks to prevent blood clots. -OTC Tylenol 500 mg 1 tablet every 4 hours as needed for pain/fever. Max 6 tablets per day. -Ibuprofen 400 mg 1 tablet every 4 hours as needed for pain/inflammation. Max 2,400 mg per day. -Oxycodone 5 mg take 1-2 tablets every 4 hours as needed for moderate-severe pain (narcotic pain medication). -As needed medications: -Ducolax and /or MiraLax as needed for constipation from narcotic pain medications. -Pepcid AC as needed for stomach upset (usually from aspirin or ibuprofen). Dressing/Wound care: -Remove the Zackery wrap 48 hours after surgery. -Keep Aquacell dressing in place until postoperative follow-up office visit. -Okay to shower. Keep wound out of direct water stream. No soaking or submerging until all the scabs fall off (approximately 6 weeks). -Please call the office if dressing becomes wet, soiled, or saturated. Activities: -Weight-bearing as tolerated. Use front wheeled walker, and progress to cane when safe. -Continue with home exercises as directed by your physical therapist. -Elevate ?toes above the nose if you have significant swelling in your lower leg. (A wedge pillow is easiest.) -Ice your incision as needed for pain/inflammation/swelling. Protect your skin with a folded pillowcase. Follow-up: -Follow-up with your surgeon or PA in the office in 10-14 days after surgery. -Follow-up with your surgeon 6 weeks postoperatively. Call the office if you have chest pain, shortness of breath, significant swelling that will not resolve with elevating, fever over 101?, significantly worsening pain. [facility]: [phone] Skin/Wound/Dressing Care Report to your healthcare provider any signs of infection, such as:: chills, fever, night sweats, unusual drainage and unusual redness Visit Report/Discharge Packet Instructions: DI for Knee Replacement Stand Alone Forms: Surgery Discharge Discharge Data Primary Care Provider: Ene Burgos Attending Provider: Rachel Virgen
--- NOTE | 2022-03-02 15:56 | CM.IDA ---
Initial DCP Assessment Note Pt is a 57 yo female, resident of [place], now POD#1 from Left knee surgery by Dr Virgen PCP: Ene Burgos Payer: [employer]/SANDRA Reviewed chart, pt discussed in multidisciplinary rounds this morning. Therapy has cleared pt for return home w/family to assist and pt has planned for home, DC order from Ortho has already been initiated this morning. Met w/patient to introduce role; patient appreciative of visit, denies needs from this LOANS OFFICER No needs expected from DC planning team although will remain available in case this changes today. Gela Borrero MSW
--- NOTE | 2022-03-02 17:06 | PC.NURSE ---
Pt is A&OX3, VSS, afebrile on RA. She reports having a tough night and not sleeping well. She is saline locked and taking good po this a.m. and voiding without difficulty. She reports pain to L knee from 5-8/10 this shift, able to ambulate with PT without difficulty. +1 edema to LLE, she elevates and ices. She has +CMS to BLE's. Ortho PA at bedside this afternoon clearing patient for discharge home. She verbalizes understanding of medications, activity, site care, s/sx of infection/thrombus, as well as follow up appointments. She is escorted via w/ch to private vehicle with her boyfriend for discharge home with all of her belongings at approximately 1625.
== END 2022-03-02 16:25 | disposition home or self-care (01) ==
LOC: OR 12:11 → AC 12:11
PROVIDERS: PCP Family Medicine; Referring Provider Orthopaedic Surgery; Visit Provider Orthopaedic Surgery
PROC: 0SRD0JZ Replacement of Left Knee Joint with Synthetic Substitute, Open Approach (ICD-10-PCS; CPT 27447; principal; 2022-03-01 14:30)
DX: M17.12 Unilateral primary osteoarthritis, left knee (principal)
CPT/HCPCS: 27447; 36415; 73560; 85014; 85018; 97116; 97161; C1776; C1713; C9290; J0171; J0690; J2250; J2704; J3010

== ENCOUNTER 2025-08-11 12:46 | Emergency (ER) | payer OTHER, SELFPAY ==
[2022-03-01 17:25] VITALS: BMI 27.4
[2025-08-11 12:51] VITALS: BP 125/77; PULSE 87; RESP 17; TEMP 36.6; O2SAT 97; BMI 27.4
--- NOTE | 2025-08-11 12:57 | DI.US.S_ITS ---
PROCEDURE: US PERIPH VENOUS LOW EXTREM BI INDICATIONS: tingling to bilateral feet TECHNIQUE: Real-time imaging, as well as color and pulse Doppler interrogation, were performed of the deep veins of both legs from the inguinal ligament to the popliteal fossa, with documentation of the visualized calf veins. COMPARISON: None. FINDINGS: Right: The common femoral, femoral, popliteal, and the visualized calf veins are normally compressible, and free of intraluminal thrombus. Color and pulse Doppler demonstrate normal phasic intravascular flow. There is normal augmentation response to distal compression maneuver. Left: The common femoral, femoral, popliteal, and the visualized calf veins are normally compressible, and free of intraluminal thrombus. Color and pulse Doppler demonstrate normal phasic intravascular flow. There is normal augmentation response to distal compression maneuver. IMPRESSION: No findings of DVT in visualized bilateral lower extremity veins. Dictated by: Law Rivas M.D. on 08/11/2025 at 13:43 Approved by: Law Rivas M.D. on 08/11/2025 at 13:45
--- NOTE | 2025-08-11 18:20 | ED.EXTPRO ---
HPI - Extremity Problem General Chief complaint: Extremity Problem,Nontraumatic Stated complaint: DVT R/O from [facility] Time Seen by Provider: 08/11/25 18:20 Source: patient Mode of arrival: Ambulatory History of Present Illness HPI Narrative: 60-year-old female complains of 3 months' duration of bilateral lower extremity tingling of unclear etiology, more recently having swelling to the right leg. No recent injury trauma or surgeries. Has history of remote prior knee surgeries. No fevers or chills. Sent here from walk-in clinic for ultrasound imaging of the lower extremities. No history of heart failure, kidney failure, liver failure per review of chart. Injury or trauma new activities. Patient would like blood testing for diabetes screening and workup of tingling sensation. Has history of chronic low back pain, no recent imaging. Related Data Home Medications ?Medication ?Instructions ?Recorded ?Confirmed bupropion HCl 300 mg 24 hr tablet, 300 mg PO QAM 05/02/21 03/01/22 extended release duloxetine 60 mg capsule,delayed 60 mg PO DAILY 05/02/21 03/01/22 release trazodone 100 mg tablet 200 mg PO BEDTIME 05/02/21 03/01/22 Previous Rx's ?Medication ?Instructions ?Recorded ibuprofen 400 mg tablet 400 mg PO Q4HR #60 tabs 05/10/21 acetaminophen 325 mg tablet 650 mg (2 x 325 mg) PO TID PRN 03/02/22 fever or pain #90 tabs docusate sodium 100 mg capsule 100 mg PO BID PRN Constipation 03/02/22 from narcotic pain meds #20 caps ibuprofen 400 mg tablet 400 mg PO Q4H PRN 03/02/22 Pain/inflammation #90 tabs oxycodone 10 mg tablet See Rx Instructions .Route 03/02/22 .COMPLEX PRN Pain, Severe (7-10) #42 tabs Allergies Allergy/AdvReac Type Severity Reaction Status Date / Time No Known Drug Allergies Allergy Verified 08/11/25 12:51 Patient History Medical History Back pain Depression Kidney stones Osteoarthritis Surgical History History of arthroplasty of left hip (2018) History of arthroplasty of right knee (05/09/21) History of arthroscopy of left shoulder Hx of arthroscopy of right knee Hx of lithotripsy Social History household members: family and none Smoking Status: Never smoker alcohol intake: former Smoking Status: Never smoker Exam Narrative Exam Narrative: GENERAL: Well-developed patient, in mild distress. HEAD: Atraumatic. Normocephalic. EYES: Pupils equal round and reactive. Extraocular motions intact. No scleral icterus. No injection or drainage. ENT: Nose without bleeding, purulent drainage. Throat without erythema, tonsillar hypertrophy or exudate. Airway patent. NECK: Trachea midline. Non tender CARDIOVASCULAR: Regular rate and rhythm without murmurs, gallops, or rubs. RESPIRATORY: Clear to auscultation. Breath sounds equal bilaterally. No wheezes, rales, or rhonchi. GASTROINTESTINAL: Abdomen soft, non-tender, nondistended. EXTREMITIES: Well-healed scars both legs anterior knees, without gross effusions. No significant gross swelling right calf compared to left. Intact sensation to light touch bilateral feet/toes. Good DP pulses, well-perfused feet, warm appearing without obvious lesions redness. BACK: Nontender without deformity or crepitance. No flank tenderness. NEURO: AOx3. Motor functions grossly nonfocal. SKIN: No rash or erythema of visible areas Initial Vital Signs Initial Vital Signs: Vital Signs Temperature 98 F 08/11/25 12:51 Pulse Rate 87 08/11/25 12:51 Respiratory Rate 17 08/11/25 12:51 Blood Pressure 125/77 08/11/25 12:51 Pulse Oximetry 97 08/11/25 12:51 Oxygen Delivery Method Room Air 08/11/25 12:51 Course Orders Ordered: ED Orders 08/11/25 12:57 US periph venous low extrem bi Stat 08/11/25 18:32 CBC Auto Diff [Complete Blood Count AUTO DIFF] Stat CMP [Comprehensive Metabolic Panel] Stat Magnesium Stat Vitamin B12 Stat Vital Signs Vital signs: Vital Signs - 8 hr 08/11/25 12:51 Temperature 98 F Pulse Rate 87 Respiratory Rate 17 Blood Pressure 125/77 Pulse Oximetry 97 Oxygen Delivery Method Room Air MDM - Extremity (Nontraumatic) Lab Data 08/11/25 18:50 08/11/25 18:50 Labs: Lab Results 08/11/25 Range/Units 18:50 WBC 5.5 (4.5-11.0) X10^3/uL RBC 4.39 (4.0-5.2) X10^6/uL Hgb 13.4 (12.0-16.0) g/dL Hct 39.6 (36-46) % MCV 90.3 (80-100) fL MCH 30.7 (26-34) PG MCHC 33.9 (30-36) % RDW 13.1 (11.6-14.8) % Plt Count 280 (150-400) X10^3/uL Neut % (Auto) 50.0 (50-75) % Lymph % (Auto) 36.0 (25-40) % [place] % (Auto) 10.3 (3-14) % Eos % (Auto) 3.0 (2-4) % Baso % (Auto) 0.7 (0-2) % Neut # (Auto) 2700 (3297-3600) /uL Lymph # (Auto) 2000 (7551-7047) /uL [place] # (Auto) 600 (0-900) /uL Eos # (Auto) 200 (0-450) /uL Baso # (Auto) 0 (0-100) /uL Sodium 136 L (137-145) mmol/L Potassium 3.8 (3.4-5.1) mmol/L Chloride 103 (98-107) mmol/L Carbon Dioxide 24 (22-32) mmol/L BUN 19 H (7-17) mg/dL Creatinine 0.93 (0.52-1.04) mg/dL Estimated GFR > 60 (>60) mL/min BUN/Creatinine Ratio 20.4 (6-22) Glucose 127 H (70-99) mg/dL Hemoglobin A1c 5.3 (4.0-6.0) % Calcium 9.1 (8.4-10.2) mg/dL Magnesium 1.8 (1.6-2.3) mg/dL Total Bilirubin 0.4 (0.2-1.3) mg/dL AST 27 (14-36) IU/L ALT 12 (<35) IU/L Alkaline Phosphatase 53 (38-126) U/L Total Protein 7.0 (6.3-8.2) g/dL Albumin 4.6 (3.5-5.0) g/dL Globulin 2.4 (1.7-4.1) g/dL Albumin/Globulin Ratio 1.9 (1.0-2.8) Vitamin B12 552 (239-931) pg/mL Imaging Data Ultrasound bilateral lower extremity venous Doppler studies.: Radiologist's Impression: [address] [address] Ultrasound Report Signed Patient: Nay Linares MR#: [id number] : 1965 Acct:[id number] Age/Sex: 60 / F Date of Service: 08/11/25 Loc: ED Accession Number: [id number] Procedure: US periph venous low extrem bi Ordering Provider: Dona Martinez D.O. PROCEDURE: US PERIPH VENOUS LOW EXTREM BI INDICATIONS: tingling to bilateral feet TECHNIQUE: Real-time imaging, as well as color and pulse Doppler interrogation, were performed of the deep veins of both legs from the inguinal ligament to the popliteal fossa, with documentation of the visualized calf veins. COMPARISON: None. FINDINGS: Right: The common femoral, femoral, popliteal, and the visualized calf veins are normally compressible, and free of intraluminal thrombus. Color and pulse Doppler demonstrate normal phasic intravascular flow. There is normal augmentation response to distal compression maneuver. Left: The common femoral, femoral, popliteal, and the visualized calf veins are normally compressible, and free of intraluminal thrombus. Color and pulse Doppler demonstrate normal phasic intravascular flow. There is normal augmentation response to distal compression maneuver. IMPRESSION: No findings of DVT in visualized bilateral lower extremity veins. Dictated by: Law Rivas M.D. on 08/11/2025 at 13:43 Approved by: Law Rivas M.D. on 08/11/2025 at 13:45 [facility] Narrative Medical decision making narrative: 60-year-old female with ongoing months' duration of bilateral lower extremity tingling, now more recent right sided calf/leg swelling, no recent surgery. Afebrile, sirs screen negative. No obvious gross asymmetry calves, referred for ultrasound imaging to rule out DVT, ordered from triage. Ultrasound venous Doppler studies negative for DVT. See radiology report. Patient we would like testing blood work for lower extremity numbness ongoing for months, we will send CBC, CMP, magnesium, vitamin-B level. We discussed lumbar imaging, she declines lumbar imaging for today. Serum studies unremarkable, random glucose and hemoglobin A1c negative. Results copy print given to patient. Vitamin B12 level is a send out lab, aware that this results still pending. Further follow up as an outpatient with PCP. Return precautions discussed. Patient discharged home. Discharge Plan Departure Patient Disposition: Home Clinical Impression: Right leg swelling, Numbness and tingling of upper and lower extremities of both sides Activity Restrictions/Additional Instructions: Bilateral lower extremity numbness and tingling ongoing. History of low back problems. We discussed lumbar imaging, declined for now. More recent swelling symptoms right lower extremity. No fever on triage. Ultrasound venous Doppler of both lower extremities showed no clots in the deep vein system at this time. Request for labs screening regarding ongoing numbness symptoms. Electrolytes unremarkable. Consider neuropathy. Consider lumbar spine imaging. Further workup as an outpatient with your regular provider advised. Prescriptions: No Action ibuprofen 400 mg Tablet 400 mg PO Q4H MDD Max 2400 mg per day PRN (Reason: Pain/inflammation) Qty: 90 0RF docusate sodium 100 mg Capsule 100 mg PO BID PRN (Reason: Constipation from narcotic pain meds) Qty: 20 0RF oxycodone 10 mg Tablet See Rx Instructions .ROUTE .COMPLEX PRN (Reason: Pain, Severe (7-10)) Qty: 42 0RF Rx Instructions: Take 1/2-1 tablet every 4 hours as needed for moderate to severe postoperative pain acetaminophen 325 mg Tablet 650 mg PO TID MDD Max 3000 mg per day PRN (Reason: fever or pain) Qty: 90 0RF trazodone 100 mg Tablet 200 mg PO BEDTIME bupropion HCl 300 mg Tablet Extended Release 24 Hr 300 mg PO QAM duloxetine 60 mg Capsule,Delayed Release(Dr/Ec) 60 mg PO DAILY ibuprofen 400 mg Tablet 400 mg PO Q4HR Qty: 60 0RF Referrals: Ene Burgos MD [Primary Care Provider, Family Practice] Stand Alone Forms: Patient Portal/API
[2025-08-11 18:47] VITALS: PULSE 85
[2025-08-11 19:02] LABS: Add Manual Diff / Slide Review NO; Hematocrit 39.6 % (36-46); Hemoglobin 13.4 g/dL (12.0-16.0); Lymphocytes Absolute Auto 2000 /uL (1100-4500); Mean Corpuscular HGB Conc 33.9 % (30-36); Mean Corpuscular Hemoglobin 30.7 PG (26-34); Mean Corpuscular Volume 90.3 fL (80-100); Platelet Count 280 X10^3/uL (150-400)
[2025-08-11 19:11] LABS: Alanine Aminotransferase 12 IU/L (<35); Albumin 4.6 g/dL (3.5-5.0); Albumin Globulin Ratio 1.9 (1.0-2.8); Alkaline Phosphatase 53 U/L (38-126); Blood Urea Nitrogen 19 mg/dL (7-17); Calcium 9.1 mg/dL (8.4-10.2); Carbon Dioxide 24 mmol/L (22-32); Chloride 103 mmol/L (98-107); Estimated Glomerular Filt Rate > 60 mL/min (>60); Globulin 2.4 g/dL (1.7-4.1); Glucose 127 mg/dL (70-99); HEMOLYSIS 22 (0-50); Magnesium 1.8 mg/dL (1.6-2.3); Potassium 3.8 mmol/L (3.4-5.1); Sodium 136 mmol/L (137-145); Total Protein 7.0 g/dL (6.3-8.2)
[2025-08-11 19:13] LABS: Hemoglobin A1C% w Est Avg Glu 5.3 % (4.0-6.0)
[2025-08-11 19:59] LABS: Vitamin B12 552 pg/mL (239-931)
== END 2025-08-11 19:45 | disposition home or self-care (01) ==
PROVIDERS: Emergency Provider Emergency Medicine; PCP Family Medicine
DX: R20.2 Paresthesia of skin (principal); R20.0 Anesthesia of skin; M79.89 Other specified soft tissue disorders; Z98.890 Other specified postprocedural states
CPT/HCPCS: 36415; 80053; 82607; 83036; 83735; 85025; 93970; 99281; 99284